=== PATIENT | male | born 1975 | race African-American/Black ===

== ENCOUNTER 2017-02-28 08:17 | Inpatient (IN) | payer OTHER ==
[2017-02-28 09:56] VITALS: BMI 22.7
--- NOTE | 2017-02-28 14:18 | HP ---
CIWA Score - CIWA Score Nausea/Vomitin Muscle Tremors: 3 Anxiety: 3 Agitation: 3 Paroxysmal Sweats: 1-Minimal Palms Moist Orientation: 0-Oriented Tacttile Disturbances: 1-Very Mild Itch/Numbness Auditory Disturbances: 1-Very Mild Visual Disturbances: 0-None Headache: 2-Mild CIWA-Ar Total Score: 17 Admission ROS BHS - HPI Chief Complaint: I NEED HELP TO STOP DRINKING ALCOHOL Allergies/Adverse Reactions: Allergies Allergy/AdvReac Type Severity Reaction Status Date / Time No Known Allergies Allergy Verified 02/27/17 13:06 History of Present Illness: THIS 41 YEARS OLD MALE WITH ALCOHOL DEPENDENCE,SEEKING DETOX,SYNCOPE FELL 3 DAYS AGO SEEN AT [facility] HAD STITCHES RIGHT EYE BROW AND INJURY RIGHT KNEE SEEN AT [facility] LONGEST PERIOD OF SOBRIETY 7 MONTHS NICOTINE DEPENDENCE Exam Limitations: No Limitations - Ebola screening Have you been sick,other than usual withdrawal symptoms: No - Review of Systems Constitutional: Loss of Appetite, Malaise, Night Sweats, Changes in sleep, Weakness, Unintentional Wgt. Loss EENT: reports: Nose Congestion, Other (LACERATION O FRIGHT EYEBROW WITH STITCHES ) Respiratory: reports: No Symptoms reported Cardiac: reports: No Symptoms Reported GI: reports: Nausea, Poor Appetite, Vomiting, Abdominal cramping : reports: No Symptoms Reported Musculoskeletal: reports: Back Pain, Muscle Pain Integumentary: reports: Dryness Neuro: reports: Tremors Endocrine: reports: No Symptoms Reported Hematology: reports: No Symptoms Reported Psychiatric: reports: other (SCHIZOPHRENIA) Other Systems: Reviewed and Negative Patient History - Patient Medical History Hx Anemia: No Hx Asthma: No Hx Chronic Obstructive Pulmonary Disease (COPD): No Hx Cancer: No Hx Cardiac Disorders: No Hx Hypertension: No Hx Hypercholesterolemia: No Hx Pacemaker: No HX Cerebrovascular Accident: No Hx Seizures: No Hx Diabetes: Yes (ON MEDICATION,INSULIN DEPENDENCE) Hx Gastrointestinal Disorders: No Hx Liver Disease: No Hx Genitourinary Disorders: No Hx Sexually Transmitted Disorders: No Hx Renal Disease (ESRD): No Hx Thyroid Disease: No Hx Human Immunodeficiency Virus (HIV): No (LAST 12/14 NEGATIVE) Hx Hepatitis C: No Hx Depression: Yes Hx Suicide Attempt: No Hx Schizophrenia: Yes (ON MEDICATIONS) Other Medical History: NO SUICIDAL,NO HOMICIDAL,INJURY OF RIGHT KNEE.STITCHES OF RIGHT EYEBROW - Patient Surgical History Past Surgical History: No Hx Neurologic Surgery: No Hx Cataract Extraction: No Hx Cardiac Surgery: No Hx Lung Surgery: No Hx Breast Surgery: No Hx Breast Biopsy: No Hx Abdominal Surgery: No Hx Appendectomy: No Hx Cholecystectomy: No Hx Genitourinary Surgery: No Hx Section: No Hx Orthopedic Surgery: No Anesthesia Reaction: No - PPD History Previous Implant?: Yes Documented Results: Negative w/o proof Implanted On Prior [facility] Admission?: No PPD to be Administered?: Yes - Smoking Cessation Smoking history: Smoker current status UNK Have you smoked in the past 12 months: Yes Aproximately how many cigarettes per day: 5 Hx Chewing Tobacco Use: No Initiated information on smoking cessation: Yes 'Breaking Loose' booklet given: 02/28/17 - Substance & Tx. History Hx Alcohol Use: Yes Hx Substance Use: No Substance Use Type: Alcohol Hx Substance Use Treatment: Yes ([facility] 10/14) - Substances Abused Alcohol Route: Oral Frequency: Daily Amount used: Beer 2 x 6 pack, Liquor 1 pint Age of first use: 18 Date of Last Use: 02/28/17 Family Disease History - Family Disease History Family History: Denies Admission Physical Exam BHS - Vital Signs Vital Signs: Vital Signs - 24 hr 02/28/17 09:54 Temperature 96.4 F L Pulse Rate 111 H Respiratory 20 Rate Blood Pressure 120/74 - Physical General Appearance: Yes: Moderate Distress, Tremorous, Irritable, Sweating, Anxious HEENTM: Yes: Normal ENT Inspection, MANE, Pharynx Normal, Other (SITCHES OF RIGHT EYEBROW) Respiratory: Yes: Lungs Clear, Normal Breath Sounds, No Respiratory Distress Neck: Yes: Within Normal Limits, Supple, Trachea in good position Breast: Yes: Within Normal Limits Cardiology: Yes: Within Normal Limits, Regular Rhythm, Regular Rate, S1, S2 Abdominal: Yes: Within Normal Limits, Normal Bowel Sounds, Non Tender, Flat, Soft Genitourinary: Yes: Within Normal Limits Back: Yes: Muscle Spasm Musculoskeletal: Yes: Back pain, Muscle Pain, Other (PAIN IN THE RIGHT KNEE) Extremities: Yes: Within Normal Limits, Normal Range of Motion, Tremors Neurological: Yes: shuttler car II-XII NML intact, Fully Oriented, Alert, Motor Strength 5/5, Other (AMBULATION WITH PAIN IN THE RIGHT KNEE) Integumentary: Yes: Dry Lymphatic: Yes: Within Normal Limits - Diagnostic (1) Alcohol dependence with uncomplicated withdrawal Current Visit: Yes Status: Acute (2) Syncope Current Visit: Yes Status: Acute (3) Laceration of eyebrow Current Visit: Yes Status: Acute (4) Nicotine dependence Current Visit: Yes Status: Acute (5) Weight loss Current Visit: Yes Status: Acute (6) Injury of right knee Current Visit: Yes Status: Acute (7) Schizophrenia Current Visit: Yes Status: Acute (8) IDDM (insulin dependent diabetes mellitus) Current Visit: Yes Status: Acute (9) Hypercholesterolemia Current Visit: Yes Status: Acute Cleared for Admission BHS - Detox or Rehab S Level of Care: Medically Managed Detox Regimen/Protocol: Librium BHS Breath Alcohol Content Breath Alcohol Content: 0 Urine Drug Screen - Results Drug Screen Negative: Yes
[2017-02-28] MEDS ORDERED: guaiFENesin/D-METHORPHAN HB 10 ML UNIT-DOSE CUPS PO PRN (14:30)
[2017-02-28] MEDS ORDERED: MAG HYDROX/AL HYDROX/SIMETH 30 ML UNIT-DOSE CUP PO PRN (14:30)
[2017-02-28] MEDS ORDERED: MAGNESIUM CITRATE 300 ML BOTTLE PO PRN (14:30)
[2017-02-28] MEDS ORDERED: MENTHOL/PHENOL 1 EACH UD MM PRN (14:30)
[2017-02-28] MEDS ORDERED: IBUPROFEN 400 MG TABLET (FP) PO PRN (14:30)
[2017-02-28] MEDS ORDERED: LOPERAMIDE HCL 2 MG CAPSULE PO PRN (14:30)
[2017-02-28] MEDS ORDERED: MAGNESIUM HYDROX 2400MG/30ML ORAL SUSPENSION 30 ML CUP PO PRN (14:30)
[2017-02-28] MEDS ORDERED: P-EPHED 60MG/TRIPROLIDI 2.5MG TABLET PO PRN (14:30)
[2017-02-28] MEDS ORDERED: chlordiazePOXIDE HCL 25 MG CAPSULE PO ONE (14:36)
[2017-02-28] MEDS: NICOTINE 14 MG/24 HOURS TOPICAL PATCH TD SCH (15:20)
[2017-02-28] MEDS: hydrOXYzine PAMOATE 50 MG CAPSULE (FP) PO PRN (15:47)
[2017-02-28] MEDS: ACETAMINOPHEN 325 MG TABLET (FP) PO PRN (15:47)
[2017-02-28 16:27] LABS: URINE APPEARANCE CLOUDY; URINE BILIRUBIN NEGATIVE (NEGATIVE); URINE BLOOD NEGATIVE (NEGATIVE); URINE COLOR YELLOW; URINE GLUCOSE (UA) 3+ (NEGATIVE); URINE KETONE 2+ (NEGATIVE); URINE LEUK ESTERASE NEGATIVE (NEGATIVE); URINE NITRITE NEGATIVE (NEGATIVE); URINE PROTEIN NEGATIVE (NEGATIVE); URINE UROBILINOGEN 4.0 E.U/dl mg/dL (0.2-1.0)
--- NOTE | 2017-02-28 17:29 | CONSULT ---
[facility] Psychiatric Consult - Data Date of interview: 02/28/17 Admission source: [facility] Identifying data: Pt. is a 41 year old male, single, without kids, unemployed, and homeless. This is patient's first time at [facility]. Pt. admitted to for alcohol dependence. Substance Abuse History: Following information confirmed with Mr. Vazquez: Smoking Cessation. Smoking history: Smoker current status UNK. Have you smoked in the past 12 months: Yes. Aproximately how many cigarettes per day: 5. Hx Chewing Tobacco Use: No. Initiated information on smoking cessation: Yes. 'Breaking Loose' booklet given: 02/28/17. - Substance & Tx. History. Hx Alcohol Use: Yes. Hx Substance Use: No. Substance Use Type: Alcohol. Hx Substance Use Treatment: Yes ([facility] 10/14). - Substances Abused. Alcohol. Route: Oral. Frequency: Daily. Amount used: Beer 2 x 6 pack, Liquor 1 pint. Age of first use: 18. Date of Last Use: 02/28/17 Medical History: Diabetes. Psychiatric History: Pt. reports one psychiatric hospitalization at [facility] in 2016. Pt minimizing information given to junior copywriter. Pt. reports staying at the [facility] last month and was seen by a psychiatrist. Pt. reports taking wellbutrin 200mg BID, gabapentin 800TID, and abilify 10mg. Pharmacy claims reviewed and a prescription of Wellbutrin 150 XL and Gabapentin 600mg TID was sent to his [facility] pharmacy on 02/19/2017. Pt. became irritable towards junior copywriter and demanding he gets the medications he requested. Pt. having a difficult time accepting feedback. Pt. denies h/o suicide attempts. Physical/Sexual Abuse/Trauma History: Denies. Mental Status Exam - Mental Status Exam Alert and Oriented to: Time, Place, Person Cognitive Function: Fair Patient Appearance: Unkempt Mood: Irritable Affect: Mood Congruent Patient Behavior: Suspicious, Agitated (Pt. uncooperative when discussing his medications and demanding to take certain doses of medications. ) Speech Pattern: Clear Voice Loudness: Normal Thought Process: Goal Oriented Thought Disorder: Being Controlled Hallucinations: Denies Suicidal Ideation: Denies Homicidal Ideation: Denies Insight/Judgement: Poor Sleep: Fair Appetite: Fair Muscle strength/Tone: Normal Gait/Station: Normal Psychiatric Findings - Problem List ([place] 1, 2,3) (1) Alcohol dependence with uncomplicated withdrawal Current Visit: Yes Status: Acute (2) Schizophrenia Current Visit: Yes Status: Acute (3) Nicotine dependence Current Visit: Yes Status: Acute - Initial Treatment Plan Initial Treatment Plan: Psychoeducation provided. Detoxification in progress. Wellbutrin 150XL po daily + abilify 10mg qhs + and gabapentin 300mg TID ( reduce dosage due to naproxen ordered BID and drug-drug interaction can cause increase gabapentin levels and oversedation.) Pharmacy claims reviewed and patient was given a prescription of wellbutrin 150mg XL on 02/19/2017 and gabapentin 600mg TID. Will continue to monitor patient.
[2017-02-28] MEDS: INSULIN (NOVOLOG) ASPART 100 UNITS/ML 10ML VIAL SQ SCH (17:30)
[2017-02-28] MEDS: chlordiazePOXIDE HCL 25 MG CAPSULE PO SCH ×2 (17:55→22:36)
[2017-02-28] MEDS: chlordiazePOXIDE HCL 25 MG CAPSULE PO PRN (18:58)
[2017-02-28] MEDS ORDERED: INSULIN (NOVOLOG) ASPART 100 UNITS/ML 10ML VIAL SQ ONE (20:03)
[2017-02-28] MEDS ORDERED: INSULIN (NOVOLOG) ASPART 100 UNITS/ML 10ML VIAL ONE (20:08)
[2017-02-28] MEDS: THIAMINE HCL 100 MG TABLET (FP) PO SCH (22:30)
[2017-02-28] MEDS: ATORVASTATIN CA 10 MG TABLET (FP) PO SCH (22:36)
[2017-02-28] MEDS: GABAPENTIN 300 MG CAPSULE (FP) PO SCH (22:36)
[2017-02-28] MEDS: INSULIN DETEMIR 100 UNITS/ML MDV SQ SCH (22:37)
[2017-02-28] MEDS: NAPROXEN 250 MG TABLET (FP) PO SCH (23:25)
[2017-03-01] MEDS: chlordiazePOXIDE HCL 25 MG CAPSULE PO SCH ×4 (05:43→22:08)
[2017-03-01] MEDS: GABAPENTIN 300 MG CAPSULE (FP) PO SCH ×3 (05:44→22:08)
[2017-03-01] MEDS: INSULIN (NOVOLOG) ASPART 100 UNITS/ML 10ML VIAL SQ SCH ×3 (08:00→16:39)
[2017-03-01] MEDS ORDERED: INSULIN (NOVOLOG) ASPART 100 UNITS/ML 10ML VIAL SQ ONE (09:08)
[2017-03-01] MEDS ORDERED: INSULIN (NOVOLOG) ASPART 100 UNITS/ML 10ML VIAL ONE ×2 (09:18→12:16)
[2017-03-01 10:03] LABS: HEMATOCRIT 42.9 % (35.4-49); HEMOGLOBIN 13.9 GM/dL (11.7-16.9); MCH 29.8 pg (25.7-33.7); MCHC 32.4 g/dl (32.0-35.9); MEAN PLT VOLUME 6.9 fl (7.5-11.1); PLATELET COUNT 314 K/MM3 (134-434); RBC 4.66 M/mm3 (4.00-5.60); RDW 12.8 % (11.9-15.9); WHITE BLOOD COUNT 5.5 K/mm3 (4.0-10.0)
[2017-03-01 10:13] LABS: CHLORIDE 102 mmol/L (98-107); POTASSIUM 3.6 mmol/L (3.5-5.1); SODIUM 141 mmol/L (136-145)
[2017-03-01] MEDS: NAPROXEN 250 MG TABLET (FP) PO SCH ×2 (10:27→22:08)
[2017-03-01] MEDS: ARIPiprazole 10 MG TABLET PO SCH (10:27)
[2017-03-01] MEDS: PRENATAL VITAMINS W/ FOLIC ACID TABLET (FP) PO SCH (10:27)
[2017-03-01 10:28] LABS: ALBUMIN 2.6 g/dl (3.4-5.0); ALK PHOS 107 U/L (45-117); ANION GAP 9 (8-16); BILIRUBIN,TOTAL 0.5 mg/dL (0.2-1.0); BLOOD UREA NITROGEN 8 mg/dL (7-18); CALCIUM 8.5 mg/dL (8.5-10.1); CO2 30 mmol/L (21-32); CREATININE 0.7 mg/dL (0.7-1.3); GLUCOSE,RANDOM 164 mg/dL (74-106); SGOT/AST 58 U/L (15-37); SGPT/ALT 49 U/L (12-78); TOT PROT 5.7 g/dl (6.4-8.2)
[2017-03-01] MEDS: NICOTINE 14 MG/24 HOURS TOPICAL PATCH TD SCH (10:30)
--- NOTE | 2017-03-01 10:34 | PN ---
S CIWA - CIWA Score Nausea/Vomitin Muscle Tremors: 3 Anxiety: 3 Agitation: 3 Paroxysmal Sweats: 1-Minimal Palms Moist Orientation: 0-Oriented Tacttile Disturbances: 1-Very Mild Itch/Numbness Auditory Disturbances: 1-Very Mild Visual Disturbances: 0-None Headache: 2-Mild CIWA-Ar Total Score: 17 BHS Progress Note (SOAP) Subjective: ALERT,IRRITABLE,ANXIOUS,INTERRUPTED SLEEP,TREMOR,PAIN IN THE BODY AND BACK Objective: 03/01/17 10:29 Vital Signs Temperature 98.1 F 03/01/17 05:53 Pulse Rate 80 03/01/17 05:53 Respiratory Rate 18 03/01/17 05:53 Blood Pressure 102/62 03/01/17 05:53 O2 Sat by Pulse Oximetry (%) EKG SINUS TACHYCARDIA 104/MIN NO CHEST PAIN,NO SOB,NO DIZZINESS Laboratory Last Values WBC 5.5 K/mm3 (4.0-10.0) 03/01/17 06:30 RBC 4.66 M/mm3 (4.00-5.60) 03/01/17 06:30 Hgb 13.9 GM/dL (11.7-16.9) 03/01/17 06:30 Hct 42.9 % (35.4-49) 03/01/17 06:30 MCV 92.0 fl (80-96) 03/01/17 06:30 MCH 29.8 pg (25.7-33.7) 03/01/17 06:30 MCHC 32.4 g/dl (32.0-35.9) 03/01/17 06:30 RDW 12.8 % (11.9-15.9) 03/01/17 06:30 Plt Count 314 K/MM3 (134-434) 03/01/17 06:30 MPV 6.9 fl (7.5-11.1) L 03/01/17 06:30 Sodium 141 mmol/L (136-145) 03/01/17 06:30 Potassium 3.6 mmol/L (3.5-5.1) 03/01/17 06:30 Chloride 102 mmol/L (98-107) 03/01/17 06:30 Carbon Dioxide 30 mmol/L (21-32) 03/01/17 06:30 Anion Gap 9 (8-16) 03/01/17 06:30 BUN 8 mg/dL (7-18) 03/01/17 06:30 Creatinine 0.7 mg/dL (0.7-1.3) 03/01/17 06:30 Creat Clearance w eGFR > 60 (>60) 03/01/17 06:30 POC Glucometer 151 UNITS (80-120) 03/01/17 05:49 Random Glucose 164 mg/dL (74-106) H 03/01/17 06:30 Calcium 8.5 mg/dL (8.5-10.1) 03/01/17 06:30 Total Bilirubin 0.5 mg/dL (0.2-1.0) 03/01/17 06:30 AST 58 U/L (15-37) H 03/01/17 06:30 ALT 49 U/L (12-78) 03/01/17 06:30 Alkaline Phosphatase 107 U/L (45-117) 03/01/17 06:30 Total Protein 5.7 g/dl (6.4-8.2) L 03/01/17 06:30 Albumin 2.6 g/dl (3.4-5.0) L 03/01/17 06:30 Urine Color Yellow 02/28/17 14:51 Urine Appearance Cloudy 02/28/17 14:51 Urine pH 7.0 (5.0-8.0) 02/28/17 14:51 Ur Specific [place] 1.030 (1.001-1.035) 02/28/17 14:51 Urine Protein Negative (NEGATIVE) 02/28/17 14:51 Urine Glucose (UA) 3+ (NEGATIVE) H 02/28/17 14:51 Urine Ketones 2+ (NEGATIVE) H 02/28/17 14:51 Urine Blood Negative (NEGATIVE) 02/28/17 14:51 Urine Nitrite Negative (NEGATIVE) 02/28/17 14:51 Urine Bilirubin Negative (NEGATIVE) 02/28/17 14:51 Urine Urobilinogen 4.0 e.u/dl mg/dL (0.2-1.0) 02/28/17 14:51 Ur Leukocyte Esterase Negative (NEGATIVE) 02/28/17 14:51 Assessment: 03/01/17 10:33 WITHDRAWAL SYMPTOM Plan: CONTINUE DETOX,
[2017-03-01] MEDS ORDERED: INSULIN (NOVOLOG) ASPART 100 UNITS/ML 10ML VIAL SQ SCH (11:00)
[2017-03-01] MEDS: ACETAMINOPHEN 325 MG TABLET (FP) PO PRN (17:13)
--- NOTE | 2017-03-01 17:28 | PN ---
[facility] Progress Note Note: Psychiatric nurse practitioner: Assistant Field Hockey Coach spoke to patient in reference to gabapentin dosage. Pt. noted to be visible and ambulating without difficulty. No oversedation noted. Gabapentin to be increased to 600 TID. Pt. agreeable with plan.
[2017-03-01] MEDS: hydrOXYzine PAMOATE 50 MG CAPSULE (FP) PO PRN (17:52)
--- NOTE | 2017-03-01 17:53 | PN ---
Psychiatric Progress Note Vital Signs: Vital Signs Period Temp Pulse Resp BP Sys/Ngo Pulse Ox Last 24 Hr 96.3 F-98.2 F 74-106 18-18 102-141/62-85 Date of Session: 03/01/17 Chief Complaint:: " I want my wellbutrin to be 200 mg twice a day." HPI: Psychiatric re-consult is sought to address patient's claim of wellbutrin 200 mg twice daily (not supported by records).Patient was admitted to [facility] on 02/27/17 for alcohol detoxification.Initially seen by devulcanizer head Ambrocio.The patient,as per nursing notes,has been perseverative,argumentative and disruptive over the issue of bupropion dosage. ROS: Visible on the unit.Ambulatory.No somatic complaints offered.Alert and fully oriented. Current Medications: Active Medications Generic Name Dose Route Start Last Admin Trade Name Freq PRN Reason Stop Dose Admin Acetaminophen 650 mg 02/28/17 14:30 03/01/17 17:13 Tylenol - PO 650 mg Q4H PRN Administration FEVER OR PAIN Al Hydroxide/Mg Hydroxide 30 ml 02/28/17 14:30 Mylanta Oral Suspension - PO Q6H PRN DYSPEPSIA Aripiprazole 10 mg 03/01/17 10:00 03/01/17 10:27 Abilify PO 10 mg DAILY ALY Administration Atorvastatin Calcium 10 mg 02/28/17 22:00 02/28/17 22:36 Lipitor - PO 10 mg HS ALY Administration Bupropion HCl 150 mg 03/01/17 10:00 03/01/17 10:27 Wellbutrin Xl - PO 150 mg DAILY ALY Administration Chlordiazepoxide HCl 25 mg 03/01/17 17:00 03/01/17 16:39 Librium - PO 03/02/17 11:01 25 mg [id number] ALY Administration Chlordiazepoxide HCl 15 mg 03/02/17 17:00 Librium - PO 03/03/17 11:01 [id number] ALY Chlordiazepoxide HCl 25 mg 02/28/17 14:30 02/28/17 18:58 Librium - PO 03/03/17 14:29 25 mg Q4H PRN Administration WITHDRAWAL(CONT SUBST) Chlordiazepoxide HCl 10 mg 03/03/17 17:00 Librium - PO 03/04/17 11:01 [id number] ALY Eucalyptus/Menthol/Phenol/Sorbitol 1 each 02/28/17 14:30 Cepastat Lozenge - MM Q4H PRN SORE THROAT Gabapentin 600 mg 03/01/17 14:00 03/01/17 14:23 Neurontin - PO 600 mg TID ALY Administration Guaifenesin 10 ml 02/28/17 14:30 Robitussin Dm - PO Q6H PRN COUGH Hydroxyzine Pamoate 50 mg 02/28/17 14:30 02/28/17 15:47 Vistaril - PO 50 mg Q4H PRN Administration AGITATION Insulin Aspart 12 units 03/01/17 11:00 03/01/17 16:39 Novolog Vial SQ 12 units TIDAC ALY Administration Protocol Insulin Detemir 25 units 02/28/17 22:00 02/28/17 22:37 Levemir Vial SQ 25 units HS ALY Administration Loperamide HCl 4 mg 02/28/17 14:30 Imodium - PO Q6H PRN DIARRHEA Magnesium Citrate 300 ml 02/28/17 14:30 Citroma - PO Q48H PRN CONSTIPATION Magnesium Hydroxide 30 ml 02/28/17 14:30 Milk Of Magnesia - PO DAILY PRN CONSTIPATION Naproxen 250 mg 02/28/17 22:00 03/01/17 10:27 Naprosyn - PO 250 mg BID ALY Administration Nicotine 14 mg 02/28/17 14:39 03/01/17 10:30 Nicoderm Patch - TD 14 mg DAILY ALY Administration Multivit/Folic Acid/Iron 1 tab 03/01/17 10:00 03/01/17 10:27 Vitamins (Sjr) - PO 1 tab DAILY ALY Administration Pseudoephedrine/Triprolidine 1 combo 02/28/17 14:30 Actifed - PO TID PRN NASAL CONGESTION Thiamine HCl 100 mg 02/28/17 22:00 02/28/17 22:30 Vitamin B1 - PO 100 mg HS ALY Administration Medication(s) Change(s): NO clinical justification for change of wellbutrin dose.Pharmacy claims are revisited by this travel writer.Patient was isssued a refill for gabapentin 600 mg po tid + wellbutrin XL 150 mg/day on 02/19/17 at [facility] pharmacy # [id number].He,however,indicated that he gets 200 mg po bid from his [facility]Dr Franco,[facility] (last seen in November 2016 ; it appears that the patient got discharged from that program from unknown reasons).Mr Vazquez states that,in the meantime,he went to a primary care physician for refills (scripts issued on 02/19/17).Patient informs that he gets his medications also from [facility].Telephone contact established with pharmacist at [phone] (verbally authorized by patient) : confirmed last refill for wellbutrin SR 200 mg po bid + gabapentin 800 mg po tid (12/13/16 ) + abilify 5 mg/day (02/05/17).Therefore,it is a sound decision to restart this patient with wellbutrin XL 150 mg/day (titration to 300 mg in next 4 days) because SR formulation not available at [facility].Agree with gabapentin 600 mg po tid + abilify 10 mg daily.Patient is made aware of this plan of care. Current Side Effect: No Lab tests ordered: No Lab tests reviewed: Yes Provider note:: Chart reviewed.belt cutter Ambrocio's consult note : appreciated.Medications revisited.Contact made with the pharmacist at the [facility] (medications verified).Met with patient.History taken.Clear indication of sporadic adherence to medications and self-report of visits to multiple providers in a relatively short period of time (dismissed from [facility] clinic for unclear reasons : patient remains evasive on the matter).Examination reveals a patient obsessed with a particular dose of bupropion and not amenable to negotiations or psychoeducation (single dose over 150 mg/day of regular wellbutrin NOT recommended).Since SR formulation not available at this institution,it is a judicious decision to switch to the XL molecule as an alternate without loss of therapeutic benefits.Fully explained to the patient in lay language.Mr Vazquez appears partially satisfied with this careplan.Will follow. Total face to face time:: 35 Mental Status Exam - Mental Status Exam Alert and Oriented to: Time, Place, Person Cognitive Function: Grossly Intact Patient Appearance: Unkempt Mood: Angry, Anxious, Irritable Affect: Inappropriate, Blunted Patient Behavior: Uncooperative, Guarded, Resitive to Care Speech Pattern: Perseverating, Tangential Voice Loudness: Normal Thought Process: Circumstantial Thought Disorder: Bizarre Hallucinations: Denies Suicidal Ideation: Denies Homicidal Ideation: Denies Insight/Judgement: Poor Sleep: Fair Appetite: Good Muscle strength/Tone: Normal Gait/Station: Normal Psychiatric Treatment Plan - Problem List (1) Schizophrenia Current Visit: Yes (2) Alcohol dependence with uncomplicated withdrawal Current Visit: Yes (3) Nicotine dependence Current Visit: Yes (4) Mood disorder Current Visit: Yes Comment: Suspected.
[2017-03-01] MEDS: THIAMINE HCL 100 MG TABLET (FP) PO SCH (22:07)
[2017-03-01] MEDS: ATORVASTATIN CA 10 MG TABLET (FP) PO SCH (22:08)
[2017-03-01] MEDS: INSULIN DETEMIR 100 UNITS/ML MDV SQ SCH (22:09)
[2017-03-02] MEDS: chlordiazePOXIDE HCL 25 MG CAPSULE PO SCH ×2 (05:35→10:10)
[2017-03-02] MEDS: GABAPENTIN 300 MG CAPSULE (FP) PO SCH ×2 (06:45→14:35)
[2017-03-02] MEDS: INSULIN (NOVOLOG) ASPART 100 UNITS/ML 10ML VIAL SQ SCH ×3 (07:23→16:59)
[2017-03-02] MEDS: ACETAMINOPHEN 325 MG TABLET (FP) PO PRN (09:03)
[2017-03-02] MEDS: NAPROXEN 250 MG TABLET (FP) PO SCH (10:09)
[2017-03-02] MEDS: ARIPiprazole 10 MG TABLET PO SCH (10:09)
[2017-03-02] MEDS: PRENATAL VITAMINS W/ FOLIC ACID TABLET (FP) PO SCH (10:09)
[2017-03-02] MEDS: NICOTINE 14 MG/24 HOURS TOPICAL PATCH TD SCH (10:10)
[2017-03-02] MEDS ORDERED: GABAPENTIN 300 MG CAPSULE (FP) PO ONE (10:29)
--- NOTE | 2017-03-02 10:43 | PN ---
S CIWA - CIWA Score Nausea/Vomitin Muscle Tremors: 3 Anxiety: 3 Agitation: 3 Paroxysmal Sweats: 1-Minimal Palms Moist Orientation: 0-Oriented Tacttile Disturbances: 1-Very Mild Itch/Numbness Auditory Disturbances: 1-Very Mild Visual Disturbances: 0-None Headache: 2-Mild CIWA-Ar Total Score: 17 BHS Progress Note (SOAP) Subjective: ALERT,IRRITABLE,ANXIOUS,INTERRUPTED SLEEP,PAIN IN THE RIGHT KNEE,OLD INJURY Objective: 03/02/17 10:40 Vital Signs Temperature 97.1 F L 03/02/17 06:39 Pulse Rate 77 03/02/17 06:39 Respiratory Rate 18 03/02/17 06:39 Blood Pressure 116/71 03/02/17 06:39 O2 Sat by Pulse Oximetry (%) Laboratory Last Values WBC 5.5 K/mm3 (4.0-10.0) 03/01/17 06:30 RBC 4.66 M/mm3 (4.00-5.60) 03/01/17 06:30 Hgb 13.9 GM/dL (11.7-16.9) 03/01/17 06:30 Hct 42.9 % (35.4-49) 03/01/17 06:30 MCV 92.0 fl (80-96) 03/01/17 06:30 MCH 29.8 pg (25.7-33.7) 03/01/17 06:30 MCHC 32.4 g/dl (32.0-35.9) 03/01/17 06:30 RDW 12.8 % (11.9-15.9) 03/01/17 06:30 Plt Count 314 K/MM3 (134-434) 03/01/17 06:30 MPV 6.9 fl (7.5-11.1) L 03/01/17 06:30 Sodium 141 mmol/L (136-145) 03/01/17 06:30 Potassium 3.6 mmol/L (3.5-5.1) 03/01/17 06:30 Chloride 102 mmol/L (98-107) 03/01/17 06:30 Carbon Dioxide 30 mmol/L (21-32) 03/01/17 06:30 Anion Gap 9 (8-16) 03/01/17 06:30 BUN 8 mg/dL (7-18) 03/01/17 06:30 Creatinine 0.7 mg/dL (0.7-1.3) 03/01/17 06:30 Creat Clearance w eGFR > 60 (>60) 03/01/17 06:30 POC Glucometer 254 UNITS (80-120) 03/02/17 06:26 Random Glucose 164 mg/dL (74-106) H 03/01/17 06:30 Calcium 8.5 mg/dL (8.5-10.1) 03/01/17 06:30 Total Bilirubin 0.5 mg/dL (0.2-1.0) 03/01/17 06:30 AST 58 U/L (15-37) H 03/01/17 06:30 ALT 49 U/L (12-78) 03/01/17 06:30 Alkaline Phosphatase 107 U/L (45-117) 03/01/17 06:30 Total Protein 5.7 g/dl (6.4-8.2) L 03/01/17 06:30 Albumin 2.6 g/dl (3.4-5.0) L 03/01/17 06:30 Urine Color Yellow 02/28/17 14:51 Urine Appearance Cloudy 02/28/17 14:51 Urine pH 7.0 (5.0-8.0) 02/28/17 14:51 Ur Specific [place] 1.030 (1.001-1.035) 02/28/17 14:51 Urine Protein Negative (NEGATIVE) 02/28/17 14:51 Urine Glucose (UA) 3+ (NEGATIVE) H 02/28/17 14:51 Urine Ketones 2+ (NEGATIVE) H 02/28/17 14:51 Urine Blood Negative (NEGATIVE) 02/28/17 14:51 Urine Nitrite Negative (NEGATIVE) 02/28/17 14:51 Urine Bilirubin Negative (NEGATIVE) 02/28/17 14:51 Urine Urobilinogen 4.0 e.u/dl mg/dL (0.2-1.0) 02/28/17 14:51 Ur Leukocyte Esterase Negative (NEGATIVE) 02/28/17 14:51 RPR Titer Nonreactive (NONREACTIVE) 03/01/17 06:30 Assessment: 03/02/17 10:40 WITHDRAWAL SYMPTOM Plan: CONTINUE DETOX,CANE FOR AMBULATION AID,NAPROXIN 500 MGS PO BID,
[2017-03-02] MEDS: hydrOXYzine PAMOATE 50 MG CAPSULE (FP) PO PRN (12:38)
--- NOTE | 2017-03-02 13:33 | EKG ---
Test Reason : Blood Pressure : / mmHG Vent. Rate : 104 BPM Atrial Rate : 104 BPM P-R Int : 144 ms QRS Dur : 084 ms QT Int : 346 ms P-R-T Axes : 070 087 057 degrees QTc Int : 454 ms SINUS TACHYCARDIA POSSIBLE LEFT ATRIAL ENLARGEMENT BORDERLINE ECG NO PREVIOUS ECGS AVAILABLE Confirmed by CHARLIE GARCIA, AURELIANO ([id number]) on 03/02/2017 1:33:25 PM Referred By: Confirmed By:AURELIANO GUERRA MD
[2017-03-02] MEDS: chlordiazePOXIDE HCL 25 MG CAPSULE PO PRN (14:36)
[2017-03-02] MEDS ORDERED: INSULIN (NOVOLOG) ASPART 100 UNITS/ML 10ML VIAL ONE (16:58)
[2017-03-02] MEDS ORDERED: chlordiazePOXIDE 5 MG CAPSULE PO SCH (17:00)
[2017-03-02 17:07] VITALS: BP 138/85; PULSE 102; TEMP 97.2
--- NOTE | 2017-03-02 18:06 | PN ---
[facility] Progress Note Note: Psychiatric nurse practitioner note: Pt. with a history of multiple psychiatric hospitalizations. Pt. has been acting bizarre, and is internally preoccupied as evidence by patient talking to himself, mumbling and following staff around unit. Pt. is unable to follow redirections by staff. Pt. is threatening staff by stating, " I am going to hit you." The situation continues to escalate and patient is not suitable for detox at this time due to being a danger to others. Pt. to be transferred to [facility] psychiatric emergency room for further evaluation.
--- NOTE | 2017-03-02 18:15 | PN ---
[facility] Progress Note Note: Psychiatry Attending's note : Patient is escalating. Mr Vazquez continues to be defiant,oblivious to staff's redirections. Patient is wandering on the unit,mumbling,shadowing staff and making incoherent remarks. Seen mumbling,talking to self,visibly preoccupied with internal ruminations.Psychotic. He remains suspicious,hypervigilant,disorganized and paranoid.Increasingly intimidating. Agitated and threatening to nurses.Refuses to meet this underwriter to ventilate his needs. Preoccupied with only one issue : " I want my wellbutrin " (currently prescribed ). Mr Vazquez is obviously decompensating and it has become apparent that he CANNOT be managed in a detox setting. This situation has evolved into an emergency.Patient can pose a danger to others (due to acute psychosis). Mr Vazquez needs to be transferred immediately to a psychiatric institution for appropriate management. EMS is activated.Patient will be taken to the psychiatric department at [facility]. [employer] called for assistance.Discussed with the Multidisciplinary treatment team. Diagnosis : Paranoid Schizophrenia.Alcohol Dependence with uncomplicated withdrawal.
--- NOTE | 2017-03-02 18:21 | PN ---
Psychiatric Progress Note Vital Signs: Vital Signs Period Temp Pulse Resp BP Sys/Ngo Pulse Ox Last 24 Hr 97.1 F-98.2 F 77-102 2-19 116-138/60-85 Date of Session: 03/02/17 Chief Complaint:: "I am going to hit you." HPI: Day 4 of detox. Pt is increasingly agitated and threatening. ROS: Unremarkable Current Medications: Active Medications Generic Name Dose Route Start Last Admin Trade Name Freq PRN Reason Stop Dose Admin Acetaminophen 650 mg 02/28/17 14:30 03/02/17 09:03 Tylenol - PO 650 mg Q4H PRN Administration FEVER OR PAIN Al Hydroxide/Mg Hydroxide 30 ml 02/28/17 14:30 Mylanta Oral Suspension - PO Q6H PRN DYSPEPSIA Aripiprazole 10 mg 03/01/17 10:00 03/02/17 10:09 Abilify PO 10 mg DAILY ALY Administration Atorvastatin Calcium 10 mg 02/28/17 22:00 03/01/17 22:08 Lipitor - PO 10 mg HS ALY Administration Bupropion HCl 150 mg 03/01/17 10:00 03/02/17 10:13 Wellbutrin Xl - PO 150 mg DAILY ALY Administration Chlordiazepoxide HCl 15 mg 03/02/17 17:00 03/02/17 17:12 Librium - PO 03/03/17 11:01 15 mg [id number] ALY Administration Chlordiazepoxide HCl 25 mg 02/28/17 14:30 03/02/17 14:36 Librium - PO 03/03/17 14:29 25 mg Q4H PRN Administration WITHDRAWAL(CONT SUBST) Chlordiazepoxide HCl 10 mg 03/03/17 17:00 Librium - PO 03/04/17 11:01 [id number] Eucalyptus/Menthol/Phenol/Sorbitol 1 each 02/28/17 14:30 Cepastat Lozenge - MM Q4H PRN SORE THROAT Gabapentin 600 mg 03/01/17 14:00 03/02/17 14:35 Neurontin - PO 600 mg TID ALY Administration Guaifenesin 10 ml 02/28/17 14:30 Robitussin Dm - PO Q6H PRN COUGH Hydroxyzine Pamoate 50 mg 02/28/17 14:30 03/02/17 12:38 Vistaril - PO 50 mg Q4H PRN Administration AGITATION Insulin Aspart 12 units 03/01/17 11:00 03/02/17 16:59 Novolog Vial SQ 12 units TIDAC ALY Administration Protocol Insulin Detemir 25 units 02/28/17 22:00 03/01/17 22:09 Levemir Vial SQ 25 units HS ALY Administration Loperamide HCl 4 mg 02/28/17 14:30 Imodium - PO Q6H PRN DIARRHEA Magnesium Citrate 300 ml 02/28/17 14:30 Citroma - PO Q48H PRN CONSTIPATION Magnesium Hydroxide 30 ml 02/28/17 14:30 Milk Of Magnesia - PO DAILY PRN CONSTIPATION Naproxen 500 mg 03/02/17 22:00 Naprosyn - PO BID ALY Nicotine 14 mg 02/28/17 14:39 03/02/17 10:10 Nicoderm Patch - TD 14 mg DAILY ALY Administration Multivit/Folic Acid/Iron 1 tab 03/01/17 10:00 03/02/17 10:09 Vitamins (Sjr) - PO 1 tab DAILY ALY Administration Pseudoephedrine/Triprolidine 1 combo 02/28/17 14:30 Actifed - PO TID PRN NASAL CONGESTION Thiamine HCl 100 mg 02/28/17 22:00 03/01/17 22:07 Vitamin B1 - PO 100 mg HS ALY Administration Medication(s) Change(s): None. Current Side Effect: No Lab tests ordered: No Lab tests reviewed: Yes Provider note:: Psychiatric nurse practitioner note: Pt. with a history of multiple psychiatric hospitalizations. Pt. has been acting bizarre, and is internally preoccupied as evidence by patient talking to himself, mumbling and following staff around unit. Pt. is unable to follow redirections by staff. Pt. is threatening staff by stating, " I am going to hit you." The situation continues to escalate and patient is not suitable for detox at this time due to being a danger to others. Pt. to be transferred to [facility] psychiatric emergency room for further evaluation. Mental status exam: Pt is uncooperative and bizarre. Mood is angry and irritable, affect is inappropriate, patient behavior is intimidating and inappropriate. Pt. is resistant to verbal redirection. Speech pattern is disorganized. Voice loudness normal. Thought process is disorganized. Thought disorder is paranoid. Pt. denies suicidal ideation. Pt. threaten to assault staff without any provocation. Diagnosis: Psychosis, Schizophrenia, Alcohol dependence with uncomplicated withdrawal and nicotine dependence. Mental Status Exam - Mental Status Exam Alert and Oriented to: Time, Place, Person Cognitive Function: Grossly Intact Patient Appearance: Unkempt Mood: Angry, Hostile, Suspicious, Irritable Affect: Inappropriate Patient Behavior: Inappropriate, Uncooperative (Pt. refuses to follow verbal redirection. Continues to follow staff and is making verbal threats. ), Suspicious, Wandering, Agitated Speech Pattern: Inappropriate, Perseverating Voice Loudness: Normal Thought Process: Tangential, Disorganized Thought Disorder: Present, Paranoid Ideation, Bizarre Hallucinations: Denies Suicidal Ideation: Denies Homicidal Ideation: Plan (Stated to staff " I am going to hit somebody.") Insight/Judgement: Impaired Sleep: Poorly Appetite: Fair Muscle strength/Tone: Normal Gait/Station: Normal Psychiatric Treatment Plan - Problem List (1) Psychosis Current Visit: Yes (2) Schizophrenia Current Visit: Yes (3) Alcohol dependence with uncomplicated withdrawal Current Visit: Yes (4) Nicotine dependence Current Visit: Yes
--- NOTE | 2017-03-02 20:13 | PN ---
[facility] Progress Note Note: received nurse call that the patient has psychotic episode, seen by psychiatrist patient transferred to [facility] for psychiatric evaluation order ER evaluation may return to [facility] when condition stabilized
[2017-03-02] MEDS ORDERED: NAPROXEN 500 MG TABLET (FP) PO SCH (22:00)
[2017-03-03] MEDS ORDERED: chlordiazePOXIDE HCL 10 MG CAPSULE PO SCH (17:00)
== END 2017-03-02 18:40 | DRG 775 ==
LOC: YASAS 08:17 → Y6N 10:32
PROVIDERS: ADMIT Internal Medicine; ATTEND Internal Medicine
PROC: HZ2ZZZZ Detoxification Services for Substance Abuse Treatment (ICD-10-PCS; principal; 2017-02-28)
DX: F10.230 Alcohol dependence with withdrawal, uncomplicated (principal); F17.210 Nicotine dependence, cigarettes, uncomplicated; F29 Unspecified psychosis not due to a substance or known physiological condition; F20.9 Schizophrenia, unspecified; F39 Unspecified mood [affective] disorder; E11.9 Type 2 diabetes mellitus without complications; E78.00 Pure hypercholesterolemia, unspecified; R00.0 Tachycardia, unspecified; Z79.84 Long term (current) use of oral hypoglycemic drugs; Z87.898 Personal history of other specified conditions; Z86.79 Personal history of other diseases of the circulatory system; Z59.0 Homelessness
CPT/HCPCS: 36415; 80053; 81003; 85027; 86593; 93005; 93010

== ENCOUNTER 2017-04-15 13:45 | Inpatient (IN) | payer OTHER ==
[2017-04-15 17:27] VITALS: BMI 23.1
--- NOTE | 2017-04-15 20:54 | HP ---
COWS - Scale Resting Pulse: 1= [place] 81-100 Sweatin= Chills/Flushing Restless Observation: 5= Unable to Sit Still Pupil Size: 1= Pupils >than Normal Bone or Joint Aches: 4=Acute Joint/Muscle Pain Runny Nose/ Eye Tearin= Nasal Congestion GI Upset > 30mins: 3= Vomiting/Diarrhea Tremor Observation: 2= Slight Tremor Visible Yawning Observation: 0= None Anxiety or Irritability: 2=Irritable/Anxious Goose Flesh Skin: 0=Smooth Skin COWS Score: 20 CIWA Score - CIWA Score Nausea/Vomitin Muscle Tremors: 4-Moderate,w/Arms Extend Anxiety: 4-Mod. Anxious/Guarded Agitation: 4-Moderately Restless Paroxysmal Sweats: 1-Minimal Palms Moist Orientation: 0-Oriented Tacttile Disturbances: 3-Moderate Itch/Numb/Burn Auditory Disturbances: 0-None Visual Disturbances: 0-None Headache: 4-Moderately Severe CIWA-Ar Total Score: 23 Admission ROS BHS - HPI Chief Complaint: C/O WITHDRAWAL SX'S R/T OPIATES AND ALCOHOL. SEEKING DETOX TXMENT. Allergies/Adverse Reactions: Allergies Allergy/AdvReac Type Severity Reaction Status Date / Time No Known Allergies Allergy Verified 04/15/17 18:04 History of Present Illness: 41 Y.O. MALE WITH LONG HX/O OPIOID AND ALCOHOL DEPENDENCE SEEKING DETOX TXMENT. CLIENT WAS SEEN TODAY IN [facility] FOR WITHDRAWAL SX'S AND REFERRED HERE. REPORTS LONGEST CLEAN TIME 7 MONTHS. DENIES LEGALS. Exam Limitations: No Limitations - Ebola screening Have you traveled outside of the country in the last 21 days: No Have you had contact with anyone from an Ebola affected area: No Have you been sick,other than usual withdrawal symptoms: No Do you have a fever: No - Review of Systems Constitutional: Chills, Malaise, Night Sweats, Changes in sleep, Unintentional Wgt. Loss EENT: reports: Blurred Vision Respiratory: reports: Shortness of Breath Cardiac: reports: No Symptoms Reported GI: reports: Nausea, Poor Fluid Intake, Abdominal cramping : reports: No Symptoms Reported Musculoskeletal: reports: Back Pain, Joint Pain, Muscle Pain, Neck Pain Integumentary: reports: No Symptoms Reported Neuro: reports: Headache Endocrine: reports: Other (DM) Hematology: reports: No Symptoms Reported Psychiatric: reports: Anxious, Depressed Other Systems: Reviewed and Negative Patient History - Patient Medical History Hx Anemia: No Hx Asthma: No Hx Chronic Obstructive Pulmonary Disease (COPD): No Hx Cancer: No Hx Cardiac Disorders: No Hx Hypertension: No Hx Hypercholesterolemia: No Hx Pacemaker: No HX Cerebrovascular Accident: No Hx Seizures: No Hx Diabetes: Yes (ON MEDICATION,INSULIN DEPENDENCE) Hx Gastrointestinal Disorders: No Hx Liver Disease: No Hx Genitourinary Disorders: No Hx Sexually Transmitted Disorders: No Hx Renal Disease (ESRD): No Hx Thyroid Disease: No Hx Human Immunodeficiency Virus (HIV): No Hx Hepatitis C: No Hx Depression: Yes Hx Suicide Attempt: No Hx Schizophrenia: Yes (ON MEDICATIONS) Other Medical History: DENIES - Patient Surgical History Past Surgical History: No Hx Neurologic Surgery: No Hx Cataract Extraction: No Hx Cardiac Surgery: No Hx Lung Surgery: No Hx Breast Surgery: No Hx Breast Biopsy: No Hx Abdominal Surgery: No Hx Appendectomy: No Hx Cholecystectomy: No Hx Genitourinary Surgery: No Hx Section: No Hx Orthopedic Surgery: No Anesthesia Reaction: No - PPD History Previous Implant?: Yes Documented Results: Negative w/proof Date: 03/02/17 Results: 0MM PPD to be Administered?: No - Smoking Cessation Smoking history: Current every day smoker Have you smoked in the past 12 months: Yes Aproximately how many cigarettes per day: 5 Cigars Per Day: 0 Hx Chewing Tobacco Use: No Initiated information on smoking cessation: Yes 'Breaking Loose' booklet given: 04/15/17 - Substance & Tx. History Hx Alcohol Use: Yes Hx Substance Use: Yes Substance Use Type: Alcohol, Heroin, Opiates (MTD) Hx Substance Use Treatment: Yes ([facility] - Substances Abused Alcohol Route: Oral Frequency: Daily Amount used: liquor- 2 pint Age of first use: 18 Date of Last Use: 04/15/17 Heroin Route: Inhalation Frequency: Daily Amount used: 4 bags Age of first use: 39 Date of Last Use: 04/15/[address] METHADONE Route: Oral Frequency: 3-6 times per week Amount used: 50 Age of first use: 40 Date of Last Use: 04/15/17 Family Disease History - Family Disease History Family Disease History: Diabetes: Sister (DM), Heart Disease: Mother (PR) Admission Physical Exam BHS - Vital Signs Vital Signs: Vital Signs - 24 hr 04/15/17 17:26 Temperature 97.6 F Pulse Rate 98 H Respiratory 20 Rate Blood Pressure 134/72 - Physical General Appearance: Yes: Disheveled, Moderate Distress, Tremorous, Irritable, Anxious HEENTM: Yes: EOMI, Normocephalic, Normal Voice, MANE, Pharynx Normal, Nasal Congestion Respiratory: Yes: Chest Non-Tender, Lungs Clear, Normal Breath Sounds, No Respiratory Distress, No Accessory Muscle Use Neck: Yes: No masses,lesions,Nodules, Supple, Trachea in good position Breast: Yes: Breast Exam Deferred Cardiology: Yes: Regular Rhythm, S1, S2, Tachycardia Abdominal: Yes: Normal Bowel Sounds, Non Tender, Flat, Soft Genitourinary: Yes: Within Normal Limits Back: Yes: Normal Inspection Musculoskeletal: Yes: full range of Motion, Gait Steady Extremities: Yes: Normal Capillary Refill, Normal Range of Motion, Non-Tender, Tremors Neurological: Yes: cork tile floor layer II-XII NML intact, Fully Oriented, Alert, Motor Strength 5/5 Integumentary: Yes: Normal Color, Dry, Warm, Other (SUPERFICIAL ABRASIONS NOTED TO UE AND BLE) Lymphatic: Yes: Within Normal Limits - Diagnostic (1) Opioid dependence with withdrawal Current Visit: Yes Status: Chronic (2) Alcohol dependence with uncomplicated withdrawal Current Visit: No Status: Chronic (3) IDDM (insulin dependent diabetes mellitus) Current Visit: No Status: Chronic (4) Nicotine dependence Current Visit: No Status: Chronic Qualifiers: Nicotine product type: cigarettes Substance use status: uncomplicated Qualified Code(s): F17.210 - Nicotine dependence, cigarettes, uncomplicated Cleared for Admission [facility] - Detox or Rehab [facility] Level of Care: Medically Managed Detox Regimen/Protocol: Methadone/Librium [facility] Breath Alcohol Content Breath Alcohol Content: 0 Urine Drug Screen - Results Drug Screen Negative: No Urine Drug Screen Results: THC-Marijuana, BZO-Benzodiazepines, MTD-Methadone, TCA-Tricyclic Antidepress
[2017-04-15] MEDS ORDERED: MENTHOL/PHENOL 1 EACH UD MM PRN (21:06)
[2017-04-15] MEDS ORDERED: ACETAMINOPHEN 325 MG TABLET (FP) PO PRN (21:06)
[2017-04-15] MEDS ORDERED: METHADONE HCL 10 MG TABLET (FOR DETOX USE ONLY) PO ONE ×2 (21:06→23:00)
[2017-04-15] MEDS ORDERED: guaiFENesin/D-METHORPHAN HB 10 ML UNIT-DOSE CUPS PO PRN (21:06)
[2017-04-15] MEDS ORDERED: hydrOXYzine PAMOATE 50 MG CAPSULE (FP) PO PRN (21:06)
[2017-04-15] MEDS ORDERED: P-EPHED 60MG/TRIPROLIDI 2.5MG TABLET PO PRN (21:06)
[2017-04-15] MEDS ORDERED: IBUPROFEN 400 MG TABLET (FP) PO PRN (21:06)
[2017-04-15] MEDS ORDERED: chlordiazePOXIDE HCL 25 MG CAPSULE PO PRN (21:06)
[2017-04-15] MEDS ORDERED: MAGNESIUM CITRATE 300 ML BOTTLE PO PRN (21:06)
[2017-04-15] MEDS ORDERED: MAGNESIUM HYDROX 2400MG/30ML ORAL SUSPENSION 30 ML CUP PO PRN (21:06)
[2017-04-15] MEDS ORDERED: MAG HYDROX/AL HYDROX/SIMETH 30 ML UNIT-DOSE CUP PO PRN (21:06)
[2017-04-15] MEDS ORDERED: LOPERAMIDE HCL 2 MG CAPSULE PO PRN (21:06)
[2017-04-15] MEDS: chlordiazePOXIDE HCL 25 MG CAPSULE PO SCH (22:56)
[2017-04-15] MEDS: ATORVASTATIN CA 10 MG TABLET (FP) PO SCH (22:56)
[2017-04-15] MEDS: THIAMINE HCL 100 MG TABLET (FP) PO SCH (22:57)
[2017-04-15] MEDS: INSULIN DETEMIR 100 UNITS/ML MDV SQ SCH (23:00)
[2017-04-15 23:22] LABS: URINE APPEARANCE CLEAR; URINE BILIRUBIN NEGATIVE (NEGATIVE); URINE BLOOD NEGATIVE (NEGATIVE); URINE COLOR YELLOW; URINE GLUCOSE (UA) 2+ (NEGATIVE); URINE KETONE 1+ (NEGATIVE); URINE LEUK ESTERASE NEGATIVE (NEGATIVE); URINE NITRITE NEGATIVE (NEGATIVE); URINE UROBILINOGEN NEGATIVE mg/dL (0.2-1.0)
[2017-04-15 23:26] LABS: URINE PROTEIN 1+ (NEGATIVE)
[2017-04-15 23:29] LABS: URINE HYALINE CAST 2 /lpf; URINE MUCUS FEW
[2017-04-16] MEDS: chlordiazePOXIDE HCL 25 MG CAPSULE PO SCH ×4 (06:27→22:34)
[2017-04-16] MEDS ORDERED: INSULIN (NOVOLOG) ASPART 100 UNITS/ML 10ML VIAL ONE (07:44)
[2017-04-16] MEDS: INSULIN (NOVOLOG) ASPART 100 UNITS/ML 10ML VIAL SQ SCH ×3 (07:58→18:02)
[2017-04-16] MEDS ORDERED: METHADONE HCL 10 MG TABLET (FOR DETOX USE ONLY) PO SCH (10:00)
[2017-04-16] MEDS: PRENATAL VITAMINS W/ FOLIC ACID TABLET (FP) PO SCH (10:38)
[2017-04-16] MEDS: NICOTINE 14 MG/24 HOURS TOPICAL PATCH TD SCH (10:38)
--- NOTE | 2017-04-16 12:07 | CONSULT ---
[facility] Psychiatric Consult - Data Date of interview: 04/16/17 Admission source: [facility] Identifying data: Readmission to [facility] for this 41 y/o AA male seeking detox treatment on for heroin,alcohol,methadone and cannabis dependence.Patient is single,a father of one,homeless,unemployed and reportedly deprived of income. Substance Abuse History: Confirmed by patient in this interview. Smoking history : Current every day smoker. Have you smoked in the past 12 months: Yes. Aproximately how many cigarettes per day: 5. Cigars Per Day: 0. Hx Chewing Tobacco Use: No. Initiated information on smoking cessation: Yes. 'Breaking Loose' booklet given: 04/15/17. - Substance & Tx. History. Hx Alcohol Use: Yes. Hx Substance Use: Yes. Substance Use Type: Alcohol, Heroin, Opiates (MTD) . Hx Substance Use Treatment: Yes ([facility]). - Substances Abused. Alcohol. Route: Oral. Frequency: Daily. Amount used: liquor- 2 pint. Age of first use : 18. Date of Last Use: 04/15/17. Heroin. Route: Inhalation. Frequency: Daily. Amount used: 4 bags. Age of first use: 39. Date of Last Use: . STREET METHADONE. Route: Oral. Frequency: 3-6 times per week. Amount used: 50. Age of first use: 40. Date of Last Use: 04/15/17 Medical History: Diabetes mellitus. Psychiatric History: Patient endorses a history of two psychiatric hospitalizations ([facility] + [facility]).Diagnosed with Schizophrenia and Mood Disorder.Mr Vazquez declares that he currently gets his outpatient psychiatric services at the [place] [facility].Maintained,as per self-report,on a regimen of welbutrin SR 200 mg po bid + abilify 20 mg/day + gabapentin 600 mg po tid.Patient admits to sporadic adherence to [facility] care.Denies history of suicide attempts. Physical/Sexual Abuse/Trauma History: Patient denies. Additional Comment: Urine Drug Screen Results: THC-Marijuana, BZO- Benzodiazepines, MTD-Methadone, TCA-Tricyclic Antidepressant.Noted. Mental Status Exam - Mental Status Exam Alert and Oriented to: Place, Person Cognitive Function: Impaired Patient Appearance: Well Groomed Mood: Nervous, Withdrawn Affect: Mood Congruent Patient Behavior: Sedated (sluggish,slow), Fatigued, Cooperative Speech Pattern: Delayed, Slurred, Garbled Voice Loudness: Moderately Soft/Quiet Thought Process: Goal Oriented Thought Disorder: Paranoid Ideation Hallucinations: Denies Suicidal Ideation: Denies Homicidal Ideation: Denies Insight/Judgement: Poor Sleep: Well Appetite: Good Muscle strength/Tone: Normal Gait/Station: Other (slow gait but steady) Psychiatric Findings - Problem List ([place] 1, 2,3) (1) Opioid dependence with withdrawal Current Visit: Yes Status: Acute (2) Alcohol dependence with uncomplicated withdrawal Current Visit: Yes Status: Acute (3) Nicotine dependence Current Visit: Yes Status: Acute Qualifiers: Nicotine product type: cigarettes Substance use status: uncomplicated Qualified Code(s): F17.210 - Nicotine dependence, cigarettes, uncomplicated (4) Marijuana abuse Current Visit: Yes Status: Acute (5) Substance induced mood disorder Current Visit: Yes Status: Acute (6) Schizophrenia Current Visit: Yes Status: Chronic Comment: As per records.On medications. - Initial Treatment Plan Initial Treatment Plan: Records revisited.Psychoeducation and support.Falls precautions.Detoxification protocol initiated on admission.Medications : wellbutrin XL 150 mg po daily + abilify 10 mg po hs + gabapentin is held at this time (in view of current sedated state).Brief discussion of side effects/ benefits of medications.Patient insists on resuming his medications.Daily monitoring of clinical course.Falls precautions.
--- NOTE | 2017-04-16 12:20 | EKG ---
Test Reason : Blood Pressure : / mmHG Vent. Rate : 078 BPM Atrial Rate : 078 BPM P-R Int : 132 ms QRS Dur : 084 ms QT Int : 380 ms P-R-T Axes : 071 077 043 degrees QTc Int : 433 ms NORMAL SINUS RHYTHM NORMAL ECG WHEN COMPARED WITH ECG OF 28-FEB-2017 15:10, NO SIGNIFICANT CHANGE WAS FOUND Confirmed by ANDRÉS CHAMBERLAIN MD ([id number]) on 04/16/2017 12:19:52 PM Referred By: Confirmed By:ANDRÉS CHAMBERLAIN MD
[2017-04-16 12:42] LABS: HEMATOCRIT 45.3 % (35.4-49); HEMOGLOBIN 15.2 GM/dL (11.7-16.9); MCH 31.4 pg (25.7-33.7); MCHC 33.4 g/dl (32.0-35.9); MEAN CELL VOLUME 93.9 fl (80-96); MEAN PLT VOLUME 6.7 fl (7.5-11.1); PLATELET COUNT 345 K/MM3 (134-434); RBC 4.83 M/mm3 (4.00-5.60); RDW 14.1 % (11.9-15.9); WHITE BLOOD COUNT 7.1 K/mm3 (4.0-10.0)
[2017-04-16 12:48] LABS: ALBUMIN 3.3 g/dl (3.4-5.0); ANION GAP 8 (8-16); BLOOD UREA NITROGEN 6 mg/dL (7-18); CALCIUM 9.4 mg/dL (8.5-10.1); CHLORIDE 101 mmol/L (98-107); CO2 29 mmol/L (21-32); GLUCOSE,RANDOM 183 mg/dL (74-106); POTASSIUM 4.3 mmol/L (3.5-5.1); SGOT/AST 18 U/L (15-37); SGPT/ALT 28 U/L (12-78); SODIUM 138 mmol/L (136-145)
[2017-04-16 12:50] LABS: ALK PHOS 127 U/L (45-117); BILIRUBIN,TOTAL 0.5 mg/dL (0.2-1.0); TOT PROT 6.9 g/dl (6.4-8.2)
--- NOTE | 2017-04-16 16:38 | PN ---
S CIWA - CIWA Score Nausea/Vomitin Muscle Tremors: 3 Anxiety: 4-Mod. Anxious/Guarded Agitation: 2 Paroxysmal Sweats: 3 Orientation: 2-Disoriented Date<2 days Tacttile Disturbances: 3-Moderate Itch/Numb/Burn Auditory Disturbances: 0-None Visual Disturbances: 0-None Headache: 0-None Present CIWA-Ar Total Score: 20 BHS COWS - Scale Resting Pulse: 0= [place] 80 or Below Sweatin= Chills/Flushing Restless Observation: 1= Difficult to Sit Still Pupil Size: 0= Normal to Room Light Bone or Joint Aches: 2= Severe Diffuse Aches Runny Nose/ Eye Tearin= None GI Upset > 30mins: 2= Nausea/Diarrhea Tremor Observation of Outstretched Hands: 2= Slight Tremor Visible Yawning Observation: 1= 1-2x During Session Anxiety or Irritability: 2=Irritable/Anxious Goose Flesh Skin: 3=Piloerection COWS Score: 14 BHS Progress Note (SOAP) Subjective: Tremors, Nausea, Body Aches, Fatigue, Sweating. Objective: PT. A & O X 2 (UNCERTAIN ABOUT CURRENT DAY / DATE) , OBSERVED AMBULATING ON UNIT. NO ACUTE DISTRESS. 04/16/17 16:36 Vital Signs Temperature 97.6 F 04/16/17 10:39 Pulse Rate 78 04/16/17 10:39 Respiratory Rate 18 04/16/17 10:39 Blood Pressure 93/59 04/16/17 10:39 O2 Sat by Pulse Oximetry (%) Laboratory Tests 04/15/17 04/15/17 04/16/17 18:06 21:17 06:16 WBC RBC Hgb Hct MCV MCH MCHC RDW Plt Count MPV Sodium Potassium Chloride Carbon Dioxide Anion Gap BUN Creatinine Creat Clearance w eGFR POC Glucometer 297 191 Random Glucose Calcium Total Bilirubin AST ALT Alkaline Phosphatase Total Protein Albumin Urine Color Yellow Urine Appearance Clear Urine pH 7.0 Ur Specific [place] 1.019 Urine Protein 1+ H Urine Glucose (UA) 2+ H Urine Ketones 1+ H Urine Blood Negative Urine Nitrite Negative Urine Bilirubin Negative Urine Urobilinogen Negative Ur Leukocyte Esterase Negative Urine WBC (Auto) 1 Urine RBC (Auto) 1 Hyaline Casts 2 Urine Mucus Few RPR Titer 04/16/17 04/16/17 04/16/17 07:50 07:50 07:50 WBC 7.1 RBC 4.83 Hgb 15.2 Hct 45.3 MCV 93.9 MCH 31.4 MCHC 33.4 RDW 14.1 D Plt Count 345 MPV 6.7 L Sodium 138 Potassium 4.3 Chloride 101 Carbon Dioxide 29 Anion Gap 8 BUN 6 L D Creatinine 1.0 D Creat Clearance w eGFR > 60 POC Glucometer Random Glucose 183 H Calcium 9.4 Total Bilirubin 0.5 AST 18 D ALT 28 D Alkaline Phosphatase 127 H Total Protein 6.9 D Albumin 3.3 L D Urine Color Urine Appearance Urine pH Ur Specific [place] Urine Protein Urine Glucose (UA) Urine Ketones Urine Blood Urine Nitrite Urine Bilirubin Urine Urobilinogen Ur Leukocyte Esterase Urine WBC (Auto) Urine RBC (Auto) Hyaline Casts Urine Mucus RPR Titer Nonreactive 04/16/17 16:11 WBC RBC Hgb Hct MCV MCH MCHC RDW Plt Count MPV Sodium Potassium Chloride Carbon Dioxide Anion Gap BUN Creatinine Creat Clearance w eGFR POC Glucometer 248 Random Glucose Calcium Total Bilirubin AST ALT Alkaline Phosphatase Total Protein Albumin Urine Color Urine Appearance Urine pH Ur Specific [place] Urine Protein Urine Glucose (UA) Urine Ketones Urine Blood Urine Nitrite Urine Bilirubin Urine Urobilinogen Ur Leukocyte Esterase Urine WBC (Auto) Urine RBC (Auto) Hyaline Casts Urine Mucus RPR Titer LABS NOTED. Assessment: 04/16/17 16:37 WITHDRAWAL SYMPTOMS. Plan: CONTINUE DETOX. INCREASE DAILY PO FLUID INTAKE.
[2017-04-16] MEDS: ARIPiprazole 10 MG TABLET PO SCH (22:30)
[2017-04-16] MEDS: ATORVASTATIN CA 10 MG TABLET (FP) PO SCH (22:30)
[2017-04-16] MEDS: THIAMINE HCL 100 MG TABLET (FP) PO SCH (22:30)
[2017-04-16] MEDS: INSULIN DETEMIR 100 UNITS/ML MDV SQ SCH (22:31)
[2017-04-17] MEDS: chlordiazePOXIDE HCL 25 MG CAPSULE PO SCH ×3 (06:27→17:11)
[2017-04-17] MEDS: INSULIN (NOVOLOG) ASPART 100 UNITS/ML 10ML VIAL SQ SCH ×3 (07:07→17:12)
[2017-04-17] MEDS: METHADONE HCL 5 MG TABLET (FOR DETOX USE ONLY) PO SCH (10:25)
[2017-04-17] MEDS: PRENATAL VITAMINS W/ FOLIC ACID TABLET (FP) PO SCH (10:26)
[2017-04-17] MEDS: NICOTINE 14 MG/24 HOURS TOPICAL PATCH TD SCH (10:26)
[2017-04-17] MEDS: NAPROXEN 500 MG TABLET (FP) PO SCH ×2 (14:16→22:30)
--- NOTE | 2017-04-17 16:58 | PN ---
[facility] CIWA - CIWA Score Nausea/Vomitin Muscle Tremors: 3 Anxiety: 3 Agitation: 3 Paroxysmal Sweats: 1-Minimal Palms Moist Orientation: 0-Oriented Tacttile Disturbances: 1-Very Mild Itch/Numbness Auditory Disturbances: 1-Very Mild Visual Disturbances: 0-None Headache: 2-Mild CIWA-Ar Total Score: 17 BHS COWS - Scale Resting Pulse: 1= [place] 81-100 Sweatin= Chills/Flushing Restless Observation: 3= Extraneous Movement Pupil Size: 1= Pupils >than Normal Bone or Joint Aches: 2= Severe Diffuse Aches Runny Nose/ Eye Tearin= Runny Nose/Eyes GI Upset > 30mins: 3= Vomiting/Diarrhea Tremor Observation of Outstretched Hands: 2= Slight Tremor Visible Yawning Observation: 1= 1-2x During Session Anxiety or Irritability: 2=Irritable/Anxious Goose Flesh Skin: 0=Smooth Skin COWS Score: 18 [facility] Progress Note (SOAP) Subjective: ALERT,IRRITABLE,ANXIOUS INTERRUPTED SLEEP,TREMOR,PAIN IN THE BODY Objective: 04/17/17 16:57 Vital Signs Temperature 97.3 F L 04/17/17 09:35 Pulse Rate 89 04/17/17 09:35 Respiratory Rate 18 04/17/17 09:35 Blood Pressure 110/68 04/17/17 09:35 O2 Sat by Pulse Oximetry (%) KG NSR Laboratory Last Values WBC 7.1 K/mm3 (4.0-10.0) 04/16/17 07:50 RBC 4.83 M/mm3 (4.00-5.60) 04/16/17 07:50 Hgb 15.2 GM/dL (11.7-16.9) 04/16/17 07:50 Hct 45.3 % (35.4-49) 04/16/17 07:50 MCV 93.9 fl (80-96) 04/16/17 07:50 MCH 31.4 pg (25.7-33.7) 04/16/17 07:50 MCHC 33.4 g/dl (32.0-35.9) 04/16/17 07:50 RDW 14.1 % (11.9-15.9) D 04/16/17 07:50 Plt Count 345 K/MM3 (134-434) 04/16/17 07:50 MPV 6.7 fl (7.5-11.1) L 04/16/17 07:50 Sodium 138 mmol/L (136-145) 04/16/17 07:50 Potassium 4.3 mmol/L (3.5-5.1) 04/16/17 07:50 Chloride 101 mmol/L (98-107) 04/16/17 07:50 Carbon Dioxide 29 mmol/L (21-32) 04/16/17 07:50 Anion Gap 8 (8-16) 04/16/17 07:50 BUN 6 mg/dL (7-18) L D 04/16/17 07:50 Creatinine 1.0 mg/dL (0.7-1.3) D 04/16/17 07:50 Creat Clearance w eGFR > 60 (>60) 04/16/17 07:50 POC Glucometer 234 UNITS (80-120) 04/17/17 06:20 Random Glucose 183 mg/dL (74-106) H 04/16/17 07:50 Calcium 9.4 mg/dL (8.5-10.1) 04/16/17 07:50 Total Bilirubin 0.5 mg/dL (0.2-1.0) 04/16/17 07:50 AST 18 U/L (15-37) D 04/16/17 07:50 ALT 28 U/L (12-78) D 04/16/17 07:50 Alkaline Phosphatase 127 U/L (45-117) H 04/16/17 07:50 Total Protein 6.9 g/dl (6.4-8.2) D 04/16/17 07:50 Albumin 3.3 g/dl (3.4-5.0) L D 04/16/17 07:50 Urine Color Yellow 04/15/17 21:17 Urine Appearance Clear 04/15/17 21:17 Urine pH 7.0 (5.0-8.0) 04/15/17 21:17 Ur Specific [place] 1.019 (1.001-1.035) 04/15/17 21:17 Urine Protein 1+ (NEGATIVE) H 04/15/17 21:17 Urine Glucose (UA) 2+ (NEGATIVE) H 04/15/17 21:17 Urine Ketones 1+ (NEGATIVE) H 04/15/17 21:17 Urine Blood Negative (NEGATIVE) 04/15/17 21:17 Urine Nitrite Negative (NEGATIVE) 04/15/17 21:17 Urine Bilirubin Negative (NEGATIVE) 04/15/17 21:17 Urine Urobilinogen Negative mg/dL (0.2-1.0) 04/15/17 21:17 Ur Leukocyte Esterase Negative (NEGATIVE) 04/15/17 21:17 Urine WBC (Auto) 1 /hpf (3-5) 04/15/17 21:17 Urine RBC (Auto) 1 /hpf (0-3) 04/15/17 21:17 Hyaline Casts 2 /lpf 04/15/17 21:17 Urine Mucus Few 04/15/17 21:17 RPR Titer Nonreactive (NONREACTIVE) 04/16/17 07:50 Assessment: 04/17/17 16:58 WITHDRAWAL SYMPTOM Plan: CONTINUE DETOX
--- NOTE | 2017-04-17 17:08 | PN ---
[facility] Progress Note Note: CONFUSED AT TIME WILL GET AMMONIA LEVEL IN AM
[2017-04-17] MEDS: ATORVASTATIN CA 10 MG TABLET (FP) PO SCH (22:30)
[2017-04-17] MEDS: chlordiazePOXIDE 5 MG CAPSULE PO SCH (22:30)
[2017-04-17] MEDS: THIAMINE HCL 100 MG TABLET (FP) PO SCH (22:30)
[2017-04-17] MEDS: ARIPiprazole 10 MG TABLET PO SCH (22:30)
[2017-04-17] MEDS: INSULIN DETEMIR 100 UNITS/ML MDV SQ SCH (22:33)
[2017-04-18] MEDS: chlordiazePOXIDE 5 MG CAPSULE PO SCH ×3 (06:00→16:54)
[2017-04-18] MEDS ORDERED: INSULIN (NOVOLOG) ASPART 100 UNITS/ML 10ML VIAL ONE (07:04)
[2017-04-18] MEDS: INSULIN (NOVOLOG) ASPART 100 UNITS/ML 10ML VIAL SQ SCH ×3 (07:49→16:59)
[2017-04-18] MEDS: NICOTINE 14 MG/24 HOURS TOPICAL PATCH TD SCH (10:39)
[2017-04-18] MEDS: METHADONE HCL 5 MG TABLET (FOR DETOX USE ONLY) PO SCH (10:39)
[2017-04-18] MEDS: NAPROXEN 500 MG TABLET (FP) PO SCH ×2 (10:39→22:45)
[2017-04-18] MEDS: PRENATAL VITAMINS W/ FOLIC ACID TABLET (FP) PO SCH (10:39)
--- NOTE | 2017-04-18 13:06 | PN ---
Psychiatric Progress Note Vital Signs: Vital Signs Period Temp Pulse Resp BP Sys/Ngo Pulse Ox Last 24 Hr 96.6 F-98.9 F 69-99 18-20 104-115/67-76 Date of Session: 04/18/17 Chief Complaint:: " I want my wellbutrin" ROS: Ammonia level 135.5 Current Medications: Active Medications Generic Name Dose Route Start Last Admin Trade Name Freq PRN Reason Stop Dose Admin Al Hydroxide/Mg Hydroxide 30 ml 04/15/17 21:06 Mylanta Oral Suspension - PO Q6H PRN DYSPEPSIA Aripiprazole 10 mg 04/16/17 22:00 04/17/17 22:30 Abilify PO 10 mg HS ALY Administration Atorvastatin Calcium 10 mg 04/15/17 22:00 04/17/17 22:30 Lipitor - PO 10 mg HS ALY Administration Chlordiazepoxide HCl 15 mg 04/17/17 23:00 04/18/17 10:39 Librium - PO 04/18/17 17:01 15 mg [id number] ALY Administration Chlordiazepoxide HCl 10 mg 04/18/17 23:00 Librium - PO 04/19/17 17:01 [id number] ALY Chlordiazepoxide HCl 25 mg 04/15/17 21:06 04/16/17 06:29 Librium - PO 04/18/17 21:06 25 mg Q4H PRN Administration WITHDRAWAL(CONT SUBST) Eucalyptus/Menthol/Phenol/Sorbitol 1 each 04/15/17 21:06 Cepastat Lozenge - MM Q4H PRN SORE THROAT Guaifenesin 10 ml 04/15/17 21:06 Robitussin Dm - PO Q6H PRN COUGH Hydroxyzine Pamoate 50 mg 04/15/17 21:06 Vistaril - PO Q4H PRN AGITATION Insulin Aspart 12 units 04/16/17 07:00 04/18/17 11:54 Novolog Vial SQ Not Given TIDAC [facility] Protocol Insulin Detemir 25 units 04/15/17 22:00 04/17/17 22:33 Levemir Vial SQ 25 units HS ALY Administration Lactulose 20 gm 04/18/17 11:45 Cephulac (Oral Use) PO QID ALY Loperamide HCl 4 mg 04/15/17 21:06 Imodium - PO Q6H PRN DIARRHEA Magnesium Citrate 300 ml 04/15/17 21:06 Citroma - PO Q48H PRN CONSTIPATION Magnesium Hydroxide 30 ml 04/15/17 21:06 Milk Of Magnesia - PO DAILY PRN CONSTIPATION Methadone HCl 5 mg 04/20/17 06:00 Dolophine - PO 04/20/17 06:01 DAILY@0600 ALY Methadone HCl 10 mg 04/19/17 10:00 Dolophine - PO 04/19/17 10:01 DAILY ALY Naproxen 500 mg 04/17/17 14:15 04/18/17 10:39 Naprosyn - PO 500 mg BID ALY Administration Nicotine 14 mg 04/16/17 10:00 04/18/17 10:39 Nicoderm Patch - TD Not Given DAILY ALY Multivit/Folic Acid/Iron 1 tab 04/16/17 10:00 04/18/17 10:39 Vitamins (Sjr) - PO 1 tab DAILY ALY Administration Pseudoephedrine/Triprolidine 1 combo 04/15/17 21:06 Actifed - PO TID PRN NASAL CONGESTION Thiamine HCl 100 mg 04/15/17 22:00 04/17/17 22:30 Vitamin B1 - PO 100 mg HS ALY Administration Medication(s) Change(s): No. Current Side Effect: No Lab tests ordered: No Lab tests reviewed: Yes Provider note:: Commercial Lending Vice President met with patient concerning psychiatric reconsultation. Pt. perseverating on his wellbutrin 150mg XL. Wellbutrin 150mg XL was discontinued by Dr. Jama due to patient's state of confusion. Ammonia level this am was 135.5. Pt. made aware that wellbutrin 150mg XL will not be ordered until ammonia level is improved. Pt. remains frustrated and is unable to accept feedback without continuing to request the medication. Will continue to monitor patient. Total face to face time:: 25 Mental Status Exam - Mental Status Exam Alert and Oriented to: Time, Place, Person Cognitive Function: Fair (Pt. is slightly confused but not impair at this time.) , Impaired (Pt. is slightly confused.) Patient Appearance: Unkempt Mood: Irritable Affect: Flat, Blunted Patient Behavior: Fatigued, Agitated Speech Pattern: Perseverating Voice Loudness: Moderately Soft/Quiet Thought Process: Disorganized Thought Disorder: Not Present Hallucinations: Denies Suicidal Ideation: Denies Homicidal Ideation: Denies Insight/Judgement: Poor Sleep: Fair Appetite: Good Muscle strength/Tone: Normal Gait/Station: Normal Psychiatric Treatment Plan - Problem List (1) Alcohol dependence with uncomplicated withdrawal Current Visit: Yes (2) Marijuana abuse Current Visit: Yes (3) Nicotine dependence Current Visit: Yes Qualifiers: Nicotine product type: cigarettes Substance use status: uncomplicated Qualified Code(s): F17.210 - Nicotine dependence, cigarettes, uncomplicated (4) Opioid dependence with withdrawal Current Visit: Yes (5) Substance induced mood disorder Current Visit: Yes (6) Schizophrenia Current Visit: Yes Comment: As per records.On medications.
[2017-04-18] MEDS: LACTULOSE 20 GM/30 ML UDC (FOR ORAL USE ONLY) PO SCH ×4 (13:19→22:45)
--- NOTE | 2017-04-18 15:20 | PN ---
[facility] Progress Note (SOAP) Subjective: Fatigue, Anxious, Tremors. Objective: PT. A & O X 3, OBSERVED AMBULATING ON UNIT. NO ACUTE DISTRESS. 04/18/17 15:14 Vital Signs Temperature 97.0 F L 04/18/17 14:09 Pulse Rate 89 04/18/17 14:09 Respiratory Rate 18 04/18/17 14:09 Blood Pressure 111/70 04/18/17 14:09 O2 Sat by Pulse Oximetry (%) Laboratory Tests Laboratory Tests 04/15/17 04/15/17 04/15/17 18:06 21:17 22:55 WBC RBC Hgb Hct MCV MCH MCHC RDW Plt Count MPV Sodium Potassium Chloride Carbon Dioxide Anion Gap BUN Creatinine Creat Clearance w eGFR POC Glucometer 297 298 Random Glucose Calcium Total Bilirubin AST ALT Alkaline Phosphatase Ammonia Total Protein Albumin Urine Color Yellow Urine Appearance Clear Urine pH 7.0 Ur Specific [place] 1.019 Urine Protein 1+ H Urine Glucose (UA) 2+ H Urine Ketones 1+ H Urine Blood Negative Urine Nitrite Negative Urine Bilirubin Negative Urine Urobilinogen Negative Ur Leukocyte Esterase Negative Urine WBC (Auto) 1 Urine RBC (Auto) 1 Hyaline Casts 2 Urine Mucus Few RPR Titer 04/16/17 04/16/17 04/16/17 06:16 07:50 07:50 WBC 7.1 RBC 4.83 Hgb 15.2 Hct 45.3 MCV 93.9 MCH 31.4 MCHC 33.4 RDW 14.1 D Plt Count 345 MPV 6.7 L Sodium 138 Potassium 4.3 Chloride 101 Carbon Dioxide 29 Anion Gap 8 BUN 6 L D Creatinine 1.0 D Creat Clearance w eGFR > 60 POC Glucometer 191 Random Glucose 183 H Calcium 9.4 Total Bilirubin 0.5 AST 18 D ALT 28 D Alkaline Phosphatase 127 H Ammonia Total Protein 6.9 D Albumin 3.3 L D Urine Color Urine Appearance Urine pH Ur Specific [place] Urine Protein Urine Glucose (UA) Urine Ketones Urine Blood Urine Nitrite Urine Bilirubin Urine Urobilinogen Ur Leukocyte Esterase Urine WBC (Auto) Urine RBC (Auto) Hyaline Casts Urine Mucus RPR Titer 04/16/17 04/16/17 04/16/17 07:50 16:11 21:18 WBC RBC Hgb Hct MCV MCH MCHC RDW Plt Count MPV Sodium Potassium Chloride Carbon Dioxide Anion Gap BUN Creatinine Creat Clearance w eGFR POC Glucometer 248 131 Random Glucose Calcium Total Bilirubin AST ALT Alkaline Phosphatase Ammonia Total Protein Albumin Urine Color Urine Appearance Urine pH Ur Specific [place] Urine Protein Urine Glucose (UA) Urine Ketones Urine Blood Urine Nitrite Urine Bilirubin Urine Urobilinogen Ur Leukocyte Esterase Urine WBC (Auto) Urine RBC (Auto) Hyaline Casts Urine Mucus RPR Titer Nonreactive 04/17/17 04/17/17 04/17/17 06:20 16:45 20:31 WBC RBC Hgb Hct MCV MCH MCHC RDW Plt Count MPV Sodium Potassium Chloride Carbon Dioxide Anion Gap BUN Creatinine Creat Clearance w eGFR POC Glucometer 234 398 152 Random Glucose Calcium Total Bilirubin AST ALT Alkaline Phosphatase Ammonia Total Protein Albumin Urine Color Urine Appearance Urine pH Ur Specific [place] Urine Protein Urine Glucose (UA) Urine Ketones Urine Blood Urine Nitrite Urine Bilirubin Urine Urobilinogen Ur Leukocyte Esterase Urine WBC (Auto) Urine RBC (Auto) Hyaline Casts Urine Mucus RPR Titer 04/18/17 04/18/17 04/18/17 06:02 08:10 11:51 WBC RBC Hgb Hct MCV MCH MCHC RDW Plt Count MPV Sodium Potassium Chloride Carbon Dioxide Anion Gap BUN Creatinine Creat Clearance w eGFR POC Glucometer 179 82 Random Glucose Calcium Total Bilirubin AST ALT Alkaline Phosphatase Ammonia 135.5 H Total Protein Albumin Urine Color Urine Appearance Urine pH Ur Specific [place] Urine Protein Urine Glucose (UA) Urine Ketones Urine Blood Urine Nitrite Urine Bilirubin Urine Urobilinogen Ur Leukocyte Esterase Urine WBC (Auto) Urine RBC (Auto) Hyaline Casts Urine Mucus RPR Titer LABS NOTED. Assessment: 04/18/17 15:20 Vital Signs Temperature 97.0 F L 04/18/17 14:09 Pulse Rate 89 04/18/17 14:09 Respiratory Rate 18 04/18/17 14:09 Blood Pressure 111/70 04/18/17 14:09 O2 Sat by Pulse Oximetry (%) Laboratory Tests 04/15/17 04/15/17 04/15/17 18:06 21:17 22:55 WBC RBC Hgb Hct MCV MCH MCHC RDW Plt Count MPV Sodium Potassium Chloride Carbon Dioxide Anion Gap BUN Creatinine Creat Clearance w eGFR POC Glucometer 297 298 Random Glucose Calcium Total Bilirubin AST ALT Alkaline Phosphatase Ammonia Total Protein Albumin Urine Color Yellow Urine Appearance Clear Urine pH 7.0 Ur Specific [place] 1.019 Urine Protein 1+ H Urine Glucose (UA) 2+ H Urine Ketones 1+ H Urine Blood Negative Urine Nitrite Negative Urine Bilirubin Negative Urine Urobilinogen Negative Ur Leukocyte Esterase Negative Urine WBC (Auto) 1 Urine RBC (Auto) 1 Hyaline Casts 2 Urine Mucus Few RPR Titer 04/16/17 04/16/17 04/16/17 06:16 07:50 07:50 WBC 7.1 RBC 4.83 Hgb 15.2 Hct 45.3 MCV 93.9 MCH 31.4 MCHC 33.4 RDW 14.1 D Plt Count 345 MPV 6.7 L Sodium 138 Potassium 4.3 Chloride 101 Carbon Dioxide 29 Anion Gap 8 BUN 6 L D Creatinine 1.0 D Creat Clearance w eGFR > 60 POC Glucometer 191 Random Glucose 183 H Calcium 9.4 Total Bilirubin 0.5 AST 18 D ALT 28 D Alkaline Phosphatase 127 H Ammonia Total Protein 6.9 D Albumin 3.3 L D Urine Color Urine Appearance Urine pH Ur Specific [place] Urine Protein Urine Glucose (UA) Urine Ketones Urine Blood Urine Nitrite Urine Bilirubin Urine Urobilinogen Ur Leukocyte Esterase Urine WBC (Auto) Urine RBC (Auto) Hyaline Casts Urine Mucus RPR Titer 04/16/17 04/16/17 04/16/17 07:50 16:11 21:18 WBC RBC Hgb Hct MCV MCH MCHC RDW Plt Count MPV Sodium Potassium Chloride Carbon Dioxide Anion Gap BUN Creatinine Creat Clearance w eGFR POC Glucometer 248 131 Random Glucose Calcium Total Bilirubin AST ALT Alkaline Phosphatase Ammonia Total Protein Albumin Urine Color Urine Appearance Urine pH Ur Specific [place] Urine Protein Urine Glucose (UA) Urine Ketones Urine Blood Urine Nitrite Urine Bilirubin Urine Urobilinogen Ur Leukocyte Esterase Urine WBC (Auto) Urine RBC (Auto) Hyaline Casts Urine Mucus RPR Titer Nonreactive 04/17/17 04/17/17 04/17/17 06:20 16:45 20:31 WBC RBC Hgb Hct MCV MCH MCHC RDW Plt Count MPV Sodium Potassium Chloride Carbon Dioxide Anion Gap BUN Creatinine Creat Clearance w eGFR POC Glucometer 234 398 152 Random Glucose Calcium Total Bilirubin AST ALT Alkaline Phosphatase Ammonia Total Protein Albumin Urine Color Urine Appearance Urine pH Ur Specific [place] Urine Protein Urine Glucose (UA) Urine Ketones Urine Blood Urine Nitrite Urine Bilirubin Urine Urobilinogen Ur Leukocyte Esterase Urine WBC (Auto) Urine RBC (Auto) Hyaline Casts Urine Mucus RPR Titer 04/18/17 04/18/17 04/18/17 06:02 08:10 11:51 WBC RBC Hgb Hct MCV MCH MCHC RDW Plt Count MPV Sodium Potassium Chloride Carbon Dioxide Anion Gap BUN Creatinine Creat Clearance w eGFR POC Glucometer 179 82 Random Glucose Calcium Total Bilirubin AST ALT Alkaline Phosphatase Ammonia 135.5 H Total Protein Albumin Urine Color Urine Appearance Urine pH Ur Specific [place] Urine Protein Urine Glucose (UA) Urine Ketones Urine Blood Urine Nitrite Urine Bilirubin Urine Urobilinogen Ur Leukocyte Esterase Urine WBC (Auto) Urine RBC (Auto) Hyaline Casts Urine Mucus RPR Titer LABS NOTED. Plan: CONTINUE DETOX. AMMONIA LEVEL NOTED TO BE 135.5. START LACTULOSE, 20 GM QID, FIRST DOSE STAT. D/C TYLENOL. RE-CHECK AMMONIA LEVEL ON 04/20/2017 AM. INCREASE DAILY PO FLUID INTAKE.
--- NOTE | 2017-04-18 18:48 | PN ---
[facility] Progress Note Note: Psychiatric Nurse Practitioner note: Furniture Decals Inspector received a phone call from SARAH Jin concerning patient. Pt. remains focused on receiving his wellbutrin 150mg Xl. Pt. was informed by phone that due to his increase level of ammonia (135.5) wellbutrin 150mg Xl was d/c. Pt. unable to accept feedback and remains focused on receiving wellbutrin.
[2017-04-18] MEDS: ATORVASTATIN CA 10 MG TABLET (FP) PO SCH (22:45)
[2017-04-18] MEDS: chlordiazePOXIDE HCL 10 MG CAPSULE PO SCH (22:45)
[2017-04-18] MEDS: ARIPiprazole 10 MG TABLET PO SCH (22:45)
[2017-04-18] MEDS: THIAMINE HCL 100 MG TABLET (FP) PO SCH (22:45)
[2017-04-18] MEDS: INSULIN DETEMIR 100 UNITS/ML MDV SQ SCH (23:09)
[2017-04-19] MEDS: chlordiazePOXIDE HCL 10 MG CAPSULE PO SCH ×3 (05:18→17:46)
[2017-04-19] MEDS: INSULIN (NOVOLOG) ASPART 100 UNITS/ML 10ML VIAL SQ SCH ×3 (08:08→17:46)
[2017-04-19] MEDS ORDERED: INSULIN (NOVOLOG) ASPART 100 UNITS/ML 10ML VIAL ONE ×2 (08:17→11:31)
[2017-04-19] MEDS ORDERED: METHADONE HCL 10 MG TABLET (FOR DETOX USE ONLY) PO SCH (10:00)
[2017-04-19] MEDS: NAPROXEN 500 MG TABLET (FP) PO SCH ×2 (10:28→22:44)
[2017-04-19] MEDS: LACTULOSE 20 GM/30 ML UDC (FOR ORAL USE ONLY) PO SCH ×4 (10:28→22:44)
[2017-04-19] MEDS: PRENATAL VITAMINS W/ FOLIC ACID TABLET (FP) PO SCH (10:28)
[2017-04-19] MEDS: NICOTINE 14 MG/24 HOURS TOPICAL PATCH TD SCH (10:28)
--- NOTE | 2017-04-19 11:32 | PN ---
S Progress Note (SOAP) Subjective: OOB AMBULATING AROUND THE UNIT. PT IS ALERT O X 3. VERBAL RESPONSE LIGHTLY DELAYED. PT REQUESTING TO LEAVE DETOX AMA BECAUSE NOT TAKING HIS WELLBUTRIN WHICH WAS HELD DUE TO ELEVATED BLOOD AMMONIA LEVEL BUT WITH CONTINUED REDIRECTION, PT APPEARS TO STAY. TO BE SEEN BY THE PSYCH AGAIN TODAY TO REITERATED MEDICATION MANAGEMENT. Objective: 04/19/17 11:30 Vital Signs 04/19/17 09:37 Temperature 98.5 F Pulse Rate 88 Respiratory 20 Rate Blood Pressure 99/61 Laboratory Last Values WBC 7.1 K/mm3 (4.0-10.0) 04/16/17 07:50 RBC 4.83 M/mm3 (4.00-5.60) 04/16/17 07:50 Hgb 15.2 GM/dL (11.7-16.9) 04/16/17 07:50 Hct 45.3 % (35.4-49) 04/16/17 07:50 MCV 93.9 fl (80-96) 04/16/17 07:50 MCH 31.4 pg (25.7-33.7) 04/16/17 07:50 MCHC 33.4 g/dl (32.0-35.9) 04/16/17 07:50 RDW 14.1 % (11.9-15.9) D 04/16/17 07:50 Plt Count 345 K/MM3 (134-434) 04/16/17 07:50 MPV 6.7 fl (7.5-11.1) L 04/16/17 07:50 Sodium 138 mmol/L (136-145) 04/16/17 07:50 Potassium 4.3 mmol/L (3.5-5.1) 04/16/17 07:50 Chloride 101 mmol/L (98-107) 04/16/17 07:50 Carbon Dioxide 29 mmol/L (21-32) 04/16/17 07:50 Anion Gap 8 (8-16) 04/16/17 07:50 BUN 6 mg/dL (7-18) L D 04/16/17 07:50 Creatinine 1.0 mg/dL (0.7-1.3) D 04/16/17 07:50 Creat Clearance w eGFR > 60 (>60) 04/16/17 07:50 POC Glucometer 100 UNITS (80-120) 04/19/17 05:22 Random Glucose 183 mg/dL (74-106) H 04/16/17 07:50 Calcium 9.4 mg/dL (8.5-10.1) 04/16/17 07:50 Total Bilirubin 0.5 mg/dL (0.2-1.0) 04/16/17 07:50 AST 18 U/L (15-37) D 04/16/17 07:50 ALT 28 U/L (12-78) D 04/16/17 07:50 Alkaline Phosphatase 127 U/L (45-117) H 04/16/17 07:50 Ammonia 135.5 umol/L (11-32) H 04/18/17 08:10 Total Protein 6.9 g/dl (6.4-8.2) D 04/16/17 07:50 Albumin 3.3 g/dl (3.4-5.0) L D 04/16/17 07:50 Urine Color Yellow 04/15/17 21:17 Urine Appearance Clear 04/15/17 21:17 Urine pH 7.0 (5.0-8.0) 04/15/17 21:17 Ur Specific [place] 1.019 (1.001-1.035) 04/15/17 21:17 Urine Protein 1+ (NEGATIVE) H 04/15/17 21:17 Urine Glucose (UA) 2+ (NEGATIVE) H 04/15/17 21:17 Urine Ketones 1+ (NEGATIVE) H 04/15/17 21:17 Urine Blood Negative (NEGATIVE) 04/15/17 21:17 Urine Nitrite Negative (NEGATIVE) 04/15/17 21:17 Urine Bilirubin Negative (NEGATIVE) 04/15/17 21:17 Urine Urobilinogen Negative mg/dL (0.2-1.0) 04/15/17 21:17 Ur Leukocyte Esterase Negative (NEGATIVE) 04/15/17 21:17 Urine WBC (Auto) 1 /hpf (3-5) 04/15/17 21:17 Urine RBC (Auto) 1 /hpf (0-3) 04/15/17 21:17 Hyaline Casts 2 /lpf 04/15/17 21:17 Urine Mucus Few 04/15/17 21:17 RPR Titer Nonreactive (NONREACTIVE) 04/16/17 07:50 Assessment: 04/19/17 11:31 WITHDRAWAL SX Plan: CONTINUE DETOX REPEAT AMMONIA LEVEL ORDERED FOR FOR 04/20/17 INCREASE PO FLUIDS
[2017-04-19] MEDS: THIAMINE HCL 100 MG TABLET (FP) PO SCH (22:44)
[2017-04-19] MEDS: ARIPiprazole 10 MG TABLET PO SCH (22:44)
[2017-04-19] MEDS: ATORVASTATIN CA 10 MG TABLET (FP) PO SCH (22:44)
[2017-04-19] MEDS: INSULIN DETEMIR 100 UNITS/ML MDV SQ SCH (22:45)
[2017-04-20] MEDS ORDERED: METHADONE HCL 5 MG TABLET (FOR DETOX USE ONLY) PO SCH (06:00)
[2017-04-20 09:31] VITALS: BP 116/71; PULSE 87; TEMP 96.3
[2017-04-20] MEDS: LACTULOSE 20 GM/30 ML UDC (FOR ORAL USE ONLY) PO SCH (10:39)
[2017-04-20] MEDS: NAPROXEN 500 MG TABLET (FP) PO SCH (10:39)
[2017-04-20] MEDS: PRENATAL VITAMINS W/ FOLIC ACID TABLET (FP) PO SCH (10:40)
[2017-04-20] MEDS: NICOTINE 14 MG/24 HOURS TOPICAL PATCH TD SCH (10:40)
--- NOTE | 2017-04-20 11:03 | PN ---
[facility] Progress Note Note: Psychiatry Attending's note : Chart reviewed. Case discussed with MECHANICAL DOOR REPAIRER Hannah. Labs appreciated. Hyperammonemia is improving. Ammonia level (repeat) = 68.89 From 135 on 04/18/17.Trending down. Mr Vazquez examined by this video game script writer. Considerable amelioration of mental status. Clear sensorium.Coherent and goal-directed speech. Patient is conversant,pleasant and appropriate. Well-related.Aware of personal needs. Eats and sleeps well.Wears neat clothes. Ambulatory.Steady gait.Cooperative with staff. No evidence of psychosis.Stable mood with brighter affect. No complaints of suicidal/homicidal ideation,intent or plan. Baseline mental status.
--- NOTE | 2017-04-20 11:24 | DS ---
[facility] Detox Discharge Summary Admission Date: 04/15/17 Discharge Date: 04/20/17 - History Additional Comments: DETOX COMPLETED. ALERT O X 3. NAD. AMBULATING WITH STEADY GAIT. PT HAS BEEN REFERRED TO [facility] FOR AFTERCARE. Pertinent Past History: SEE DX BELOW - Physical Exam Results Vital Signs: Vital Signs Temperature 96.3 F L 04/20/17 09:30 Pulse Rate 87 04/20/17 09:30 Respiratory Rate 18 04/20/17 09:30 Blood Pressure 116/71 04/20/17 09:30 O2 Sat by Pulse Oximetry (%) Pertinent Admission Physical Exam Findings: WITHDRAWAL SX Laboratory Last Values WBC 7.1 K/mm3 (4.0-10.0) 04/16/17 07:50 RBC 4.83 M/mm3 (4.00-5.60) 04/16/17 07:50 Hgb 15.2 GM/dL (11.7-16.9) 04/16/17 07:50 Hct 45.3 % (35.4-49) 04/16/17 07:50 MCV 93.9 fl (80-96) 04/16/17 07:50 MCH 31.4 pg (25.7-33.7) 04/16/17 07:50 MCHC 33.4 g/dl (32.0-35.9) 04/16/17 07:50 RDW 14.1 % (11.9-15.9) D 04/16/17 07:50 Plt Count 345 K/MM3 (134-434) 04/16/17 07:50 MPV 6.7 fl (7.5-11.1) L 04/16/17 07:50 Sodium 138 mmol/L (136-145) 04/16/17 07:50 Potassium 4.3 mmol/L (3.5-5.1) 04/16/17 07:50 Chloride 101 mmol/L (98-107) 04/16/17 07:50 Carbon Dioxide 29 mmol/L (21-32) 04/16/17 07:50 Anion Gap 8 (8-16) 04/16/17 07:50 BUN 6 mg/dL (7-18) L D 04/16/17 07:50 Creatinine 1.0 mg/dL (0.7-1.3) D 04/16/17 07:50 Creat Clearance w eGFR > 60 (>60) 04/16/17 07:50 POC Glucometer 102 UNITS (80-120) 04/20/17 05:34 Random Glucose 183 mg/dL (74-106) H 04/16/17 07:50 Calcium 9.4 mg/dL (8.5-10.1) 04/16/17 07:50 Total Bilirubin 0.5 mg/dL (0.2-1.0) 04/16/17 07:50 AST 18 U/L (15-37) D 04/16/17 07:50 ALT 28 U/L (12-78) D 04/16/17 07:50 Alkaline Phosphatase 127 U/L (45-117) H 04/16/17 07:50 Ammonia 68.89 umol/L (11-32) H 04/20/17 08:00 Total Protein 6.9 g/dl (6.4-8.2) D 04/16/17 07:50 Albumin 3.3 g/dl (3.4-5.0) L D 04/16/17 07:50 Urine Color Yellow 04/15/17 21:17 Urine Appearance Clear 04/15/17 21:17 Urine pH 7.0 (5.0-8.0) 04/15/17 21:17 Ur Specific [place] 1.019 (1.001-1.035) 04/15/17 21:17 Urine Protein 1+ (NEGATIVE) H 04/15/17 21:17 Urine Glucose (UA) 2+ (NEGATIVE) H 04/15/17 21:17 Urine Ketones 1+ (NEGATIVE) H 04/15/17 21:17 Urine Blood Negative (NEGATIVE) 04/15/17 21:17 Urine Nitrite Negative (NEGATIVE) 04/15/17 21:17 Urine Bilirubin Negative (NEGATIVE) 04/15/17 21:17 Urine Urobilinogen Negative mg/dL (0.2-1.0) 04/15/17 21:17 Ur Leukocyte Esterase Negative (NEGATIVE) 04/15/17 21:17 Urine WBC (Auto) 1 /hpf (3-5) 04/15/17 21:17 Urine RBC (Auto) 1 /hpf (0-3) 04/15/17 21:17 Hyaline Casts 2 /lpf 04/15/17 21:17 Urine Mucus Few 04/15/17 21:17 RPR Titer Nonreactive (NONREACTIVE) 04/16/17 07:50 - Treatment Hospital Course: Detox Protocol Followed, Detoxed Safely, Responded well, Discharged Condition Good, Rehab Referral Accepted Patient has Accepted a Rehab Referral to: [facility] - Medication Discharge Medications: Ambulatory Orders Gabapentin [Neurontin -] 800 mg PO TID 02/27/17 Insulin Glargine,Hum.rec.anlog [Lantus Solostar PEN -] 25 units SQ HS 02/27/17 Atorvastatin Ca [Lipitor] 10 mg PO HS 02/28/17 Aripiprazole [Abilify -] 10 mg PO DAILY #30 tablet 04/20/17 Bupropion HCl [Wellbutrin Xl -] 150 mg PO DAILY #30 tab.sr.24h 04/20/17 Insulin (Novolog) [Novolog -] 12 units SQ AC #1 vial 04/20/17 Lactulose (Oral Use) [Cephulac -] 20 gm PO DAILY #30 udc 04/20/17 - Diagnosis (1) Alcohol dependence with uncomplicated withdrawal Current Visit: Yes Status: Acute (2) Nicotine dependence Current Visit: Yes Status: Acute Qualifiers: Nicotine product type: cigarettes Substance use status: in withdrawal Qualified Code(s): F17.213 - Nicotine dependence, cigarettes, with withdrawal (3) IDDM (insulin dependent diabetes mellitus) Current Visit: Yes Status: Chronic (4) Hypercholesterolemia Current Visit: Yes Status: Chronic (5) Increased ammonia level Current Visit: Yes Status: Acute - AMA Did Patient Leave Against Medical Advice: No
[2017-04-20] MEDS: INSULIN (NOVOLOG) ASPART 100 UNITS/ML 10ML VIAL SQ SCH (11:30)
== END 2017-04-20 12:20 | disposition home or self-care (01) | DRG 773 ==
LOC: YASAS 13:45 → Y3N 19:04
PROVIDERS: ADMIT Internal Medicine; ATTEND Internal Medicine
PROC: HZ2ZZZZ Detoxification Services for Substance Abuse Treatment (ICD-10-PCS; principal; 2017-04-15)
DX: F11.23 Opioid dependence with withdrawal (principal); F10.230 Alcohol dependence with withdrawal, uncomplicated; F17.210 Nicotine dependence, cigarettes, uncomplicated; F12.10 Cannabis abuse, uncomplicated; F19.24 Other psychoactive substance dependence with psychoactive substance-induced mood disorder; F20.9 Schizophrenia, unspecified; E10.9 Type 1 diabetes mellitus without complications; Z79.4 Long term (current) use of insulin; R79.89 Other specified abnormal findings of blood chemistry; Z59.0 Homelessness
CPT/HCPCS: 36415; 80053; 81003; 81015; 82140; 82962; 85027; 86593; 93005; 93010